=== PATIENT | female | born 1945 | race Caucasian/White ===

== ENCOUNTER → 2022-12-25 08:07 | Outpatient (CLI) | payer MEDICARE, SELFPAY ==
--- NOTE | ~2022-12-25 | CT_ITS ---
EXAMINATION: CTA neck DATE: 12/25/2022 09:20 INDICATION: Right carotid bruit. TECHNIQUE: Computed tomographic angiography (CTA) of the neck was performed with 100 mL Omnipaque-350 intravenous contrast. Automated exposure control and iterative reconstruction technique were employe d. The dose-length product was 454.16 mGy-cm. Maximum intensity projection 3D-reconstructions were cr eated by the technologist on a separate workstation. COMPARISON: None. FINDINGS: There are no pathologically enlarged lymph nodes. The vertebral arteries are codominant. Th ere is moderate stenosis of distal right common carotid artery. There is moderate stenosis of distal left common carotid artery. There is plaque in the proximal internal carotid arteries. There is 45% s tenosis of the proximal right internal carotid artery relative to normal distal artery lumen diameter (NASCET criteria). There is 64% stenosis of the proximal left internal carotid artery relative to no rmal distal artery lumen diameter. There is severe cervical spondylosis. IMPRESSION: 1. 45% stenosis of the proximal right internal carotid artery relative to normal distal artery lumen diameter (NASCET criteria). 2. 64% stenosis of the proximal left internal carotid artery relative to normal distal artery lumen d iameter. 3. Moderate stenosis of the distal common carotid arteries. Reviewed, dictated and finalized at location A. IMPRESSION: 1. 45% stenosis of the proximal right internal carotid artery relative to freeman l distal artery lumen diameter (NASCET criteria). 2. 64% stenosis of the proximal left internal carotid artery relative to normal distal artery lumen diameter. 3. Moderate stenosis of the distal common carotid arteries.
== END ==
PROVIDERS: PCP Family Medicine; Visit Provider Internal Medicine Cardiovascular Disease
DX: R09.89 Other specified symptoms and signs involving the circulatory and respiratory systems (principal); I25.5 Ischemic cardiomyopathy; I35.1 Nonrheumatic aortic (valve) insufficiency; E78.5 Hyperlipidemia, unspecified; I25.810 Atherosclerosis of coronary artery bypass graft(s) without angina pectoris; R00.1 Bradycardia, unspecified; I25.2 Old myocardial infarction; Z01.810 Encounter for preprocedural cardiovascular examination; I65.23 Occlusion and stenosis of bilateral carotid arteries
CPT/HCPCS: 70498; Q9967

== ENCOUNTER 2023-02-12 09:18 | Outpatient (CLI) | payer MEDICARE, SELFPAY ==
[2023-02-12 13:08] LABS: Alanine Aminotransferase 15 U/L (6-35); Albumin Level 4.1 g/dL (3.5-5.1); Alkaline Phosphatase 148 U/L (38-126); Anion Gap 7 mmol/L (8-16); Aspartate Amino Transferase 33 U/L (14-36); Bilirubin,Total 0.9 mg/dL (0.2-1.3); Blood Urea Nitrogen 26 mg/dL (7-17); Calcium 9.3 mg/dL (8.4-10.2); Carbon Dioxide 31 mmol/L (22-30); Chloride 102 mmol/L (98-107); Cholesterol 152 mg/dL (0-200); Estimated Glomerular Filt Rate 48; Glucose 118 mg/dL (65-110); HDL Direct 34 mg/dL; Potassium 4.2 mmol/L (3.4-5.0); Sodium 140 mmol/L (137-145); Triglycerides 106 mg/dL (<150)
[2023-02-12 13:28] LABS: LDL Cholesterol Direct 89 mg/dL
== END 2023-02-12 09:19 | disposition home or self-care (01) ==
LOC: ANHGOSHLAB 09:19
PROVIDERS: PCP Family Medicine; Visit Provider Family Medicine
DX: E78.5 Hyperlipidemia, unspecified (principal); I10 Essential (primary) hypertension
CPT/HCPCS: 36415; 80053; 80061

== ENCOUNTER 2023-04-17 09:48 | Outpatient (CLI) | payer MEDICARE, SELFPAY | END 2023-04-17 09:49 | disposition home or self-care (01) | LOC: ANHAUDIO 09:49 | PROVIDERS: PCP Family Medicine; Visit Provider Family Medicine | DX: H90.3 Sensorineural hearing loss, bilateral (principal) | CPT/HCPCS: 92567 ==

== ENCOUNTER 2024-04-12 13:33 | Outpatient (CLI) | payer MEDICARE, SELFPAY ==
[2024-04-12 19:10] LABS: Alanine Aminotransferase 13 U/L (6-35); Albumin Level 4.2 g/dL (3.5-5.1); Alkaline Phosphatase 148 U/L (38-126); Anion Gap 6 mmol/L (4-12); Aspartate Amino Transferase 33 U/L (14-36); Bilirubin,Total 1.1 mg/dL (0.2-1.3); Blood Urea Nitrogen 24 mg/dL (7-17); Calcium 9.4 mg/dL (8.4-10.2); Carbon Dioxide 31 mmol/L (22-30); Chloride 104 mmol/L (98-107); Cholesterol 167 mg/dL (0-200); Estimated Glomerular Filt Rate 43; Glucose 122 mg/dL (65-110); HDL Direct 37 mg/dL; Sodium 141 mmol/L (137-145); Triglycerides 132 mg/dL (<150)
[2024-04-12 19:21] LABS: LDL Cholesterol Direct 110 mg/dL
== END 2024-04-12 13:34 | disposition home or self-care (01) ==
LOC: ANHGOSHLAB 13:35
PROVIDERS: PCP Family Medicine; Visit Provider Family Medicine
DX: I25.2 Old myocardial infarction (principal); Z13.228 Encounter for screening for other metabolic disorders; Z13.220 Encounter for screening for lipoid disorders
CPT/HCPCS: 36415; 80053; 80061

== ENCOUNTER 2024-05-12 10:33 | Outpatient (CLI) | payer MEDICARE, SELFPAY ==
[2024-05-12 19:32] LABS: Alanine Aminotransferase 13 U/L (6-35); Albumin Level 4.2 g/dL (3.5-5.1); Alkaline Phosphatase 128 U/L (38-126); Anion Gap 9 mmol/L (4-12); Aspartate Amino Transferase 39 U/L (14-36); Bilirubin,Total 1.2 mg/dL (0.2-1.3); Blood Urea Nitrogen 16 mg/dL (7-17); Calcium 9.3 mg/dL (8.4-10.2); Carbon Dioxide 30 mmol/L (22-30); Chloride 98 mmol/L (98-107); Estimated Glomerular Filt Rate 48; Glucose 112 mg/dL (65-110); Potassium 4.2 mmol/L (3.4-5.0); Sodium 137 mmol/L (137-145)
[2024-05-16 15:14] LABS: GGT 20 U/L
== END 2024-05-12 10:34 | disposition home or self-care (01) ==
LOC: ANHGOSHLAB 10:34
PROVIDERS: PCP Family Medicine; Visit Provider Family Medicine
DX: R74.8 Abnormal levels of other serum enzymes (principal); Z13.228 Encounter for screening for other metabolic disorders
CPT/HCPCS: 36415; 80053; 82977

== ENCOUNTER 2024-12-19 11:09 | Outpatient (CLI) | payer MEDICARE, SELFPAY ==
--- OUTSIDE RECORDS SUMMARY | 2024-12-19 13:24 | XMS_ITS | Clinical Summary ---
Author Organization [facility] Address [address] [place] [id number] Care Team Providers Care Hide Inspector Name Role Phone Unavailable Primary Care Provider Unavailabl e Social History Tobacco Use Types Packs/Day Years Used Date Smoking Tobacco: Never Assessed Comments Unknown Sex and Gender Information Value Date Recorded Sex Assigned at Not on file Legal Sex Female 8:33 PM CDT Gender Identity Not on file Sexual Orientation Not on file Plan of Treatment Health Maintenance Due Date Last Done Comments Hepatitis C 1963 DTaP, Tdap and Td Vaccines ( 1 - Tdap) 1964 Zoster Vaccines (1 of 2) 1995 Dexa Scan (General) 2010 Pneumococcal Vaccine: 65+ Ye ars (1 of 1 - PCV) 2010 RSV Immunization or 60+ Years (1 - 1-dose 75+ series) 2020 COVID-19 Vaccine ( - 2023-2 5 season) 2024 Influenza Adult (#1) 2024 Meningococcal B Vaccine Aged Out No l onger eligible based on patient's age to complete this topic Meningococcal Vaccine Aged Out No teddy cheo eligible based on patient's age to complete this topic RSV Immunizations Under 20 Months Aged Out No longer eligible based on patient's age to complete this topic
--- OUTSIDE RECORDS SUMMARY | 2024-12-19 13:24 | XMS_ITS | CONTINUITY OF CARE DOCUMENT ---
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 Rejiremedios Gray Hyperlipidemia active ? Reji Sweeney MD Hypertension active ? Rejisalinas Sweeney MD Myocardial Infarction active ? Siva porter MD (History of) Bradycardia - sinus active Siva Tian MD AAA active Siva Tian MD Aortic regurgitation active Siva gar MD Ischemic cardiomyopathy - EF 45% 12/2015 active Suellen Preciado NP Carotid bruit right active Siva Tian MD Preop cardiovasc. examination active Sameer Tian MD Cardiology examination active Siva sainz MD ENCOUNTERS Date Type Provider Location Encounter Diag nosis 9 - 5 In-person encounter Office Visit Siva Tian MD [facility] Cardiology examination 7 - 8 In-person encounter Office Visit Siva Tian MD [facility] 5 - 0 In-person encounter Office Visit Siva Tian MD [facility] 9 - 4 In-person encounter Office Visit Siva Tian MD [facility] 3 - 7 In-person encounter Office Visit Siva Tian MD [facility] 4 - 7 In-person encounter Office Visit Siva Tian MD [facility] 1 - 1 In-person encounter Office Visit Tyra Burleson MD [facility] 0 - 8 In-person encounter Office Visit Siva Tian MD [facility] Preop cardiovasc. examination 8 - 8 In-person encounter Office Visit Siva Tian MD [facility] 1 - 1 In-person encounter Office Visit Siva Tian MD [facility] Carotid bruit right 7 - 0 In-person encounter Office Visit Siva Tian MD [facility] 6 - 7 In-person encounter Office Visit Siva Tian MD [facility] 9 - 5 In-person encounter Office Visit Siva Tian MD [facility] Ischemic cardiomyopathy - EF 45% 12/2015 9 - 1 In-person encounter Office Visit Siva Tian MD [facility] Bradycardia - sinusAAAAortic regurgitation 8 - 3 In-person encounter Office Visit Siva Tian MD [facility] Myocardial Infarction 6 - 6 In-person encounter Office Visit Reji Sweeney MD [facility] Coronary Heart DiseaseHyperlipidemiaHypertension VITAL SIGNS Date Observation Value Provider Body Mass Index (Ratio) 29.68 kg/m2 Sean as Rajat blood pressure, diastolic 70 mm[Hg] Li nkLogic blood pressure, systolic 110 mm[Hg] Angelica kLogic blood pressure, diastolic 70 mm[Hg] Bree adenikeLogtamiko blood pressure, systolic 110 mm[Hg] Angelica Jaidenog blood pressure, cuff size regular Moises Poole blood pressure, diastolic 70 mm[Hg] Moises Poole blood pressure, systolic 110 mm[Hg] Luciano Poole pulse rate 70 /min Charu Poole oxygen saturation, oximetry 96 % Charu Poole weight E&M 195.2 [lb_av] Charu Poole respiratory rate E&M 12 /min Charu Poole height E&M 68 [in_i] Amilcar prieto Body Mass Index (Ratio) 27.73 kg/m2 Cristina Tian MD blood pressure, diastolic 83 mm[Hg] Bree jeongLogtamiko blood pressure, systolic 133 mm[Hg] Angelica Hwangtmaiko blood pressure, diastolic 83 mm[Hg] St negrito Esparza blood pressure, systolic 133 mm[Hg] Albert Esparza oxygen saturation, oximetry 97 % Moriah Esparza pulse rate 76 /min Moriah Esparza respiratory rate E&M 18 /min Moriah cardenas weight E&M 182.4 [lb_av] Moriah Esparza height E&M 68 [in_i] Moriah Esparza Body Mass Index (Ratio) 27.76 kg/m2 Cristina Tian MD blood pressure, diastolic -1 mm[Hg] Bree jeongLogtamiko blood pressure, systolic 136 mm[Hg] Angelica Hwangogtamiko blood pressure, diastolic 80 mm[Hg] lexus Gonzalez blood pressure, systolic 136 mm[Hg] [facility] jono Gonzalez oxygen saturation, oximetry 96 % Suellen Gonzalez pulse rate 75 /min Suellen Gonzalez respiratory rate E&M 18 /min Suellen Gonzalez blood pressure, cuff size regular Elver Gonzalez weight E&M 182.6 [lb_av] Suellen Gonzalez height E&M 68 [in_i] Suellen Gonzalez Body Mass Index (Ratio) 29.34 kg/m2 Shaf iq Allaham blood pressure, diastolic 77 mm[Hg] Sa ra Anne blood pressure, systolic 124 mm[Hg] Julius a Anne respiratory rate E&M 16 /min Richa Si ms oxygen saturation, oximetry 96 % Richa Anne pulse rate 75 /min Richa Anne weight E&M 193 [lb_av] Richa Anne blood pressure, cuff size regular Sa ra Anne height E&M 68 [in_i] Richa Anne Body Mass Index (Ratio) 30.41 kg/m2 Cristina Tian MD blood pressure, diastolic 65 mm[Hg] Bree nkLogtamiko blood pressure, systolic 124 mm[Hg] Angelica Hwangogtamiko blood pressure, diastolic 65 mm[Hg] Lisa Willis blood pressure, systolic 124 mm[Hg] Jr Willis blood pressure, cuff size regular Lisa Willis oxygen saturation, oximetry 96 % Latrice Willis respiratory rate E&M 16 /min Kelli Willis pulse rate 59 /min Latrice Perfecto mercer weight E&M 200 [lb_av] Jrdiaz mercer height E&M 68 [in_i] Jrdiaz mercer Body Mass Index (Ratio) 30.25 kg/m2 Cristina Tian MD blood pressure, diastolic 80 mm[Hg] Li nkLogic blood pressure, systolic 130 mm[Hg] Angelica kLogic blood pressure, cuff size regular Cy joanna White blood pressure, diastolic 80 mm[Hg] Cy joanna White blood pressure, systolic 130 mm[Hg] Avelina White oxygen saturation, oximetry 94 % Aislinn White pulse rate 59 /min Aislinn carrizales respiratory rate E&M 16 /min Aislinn White weight E&M 199 [lb_av] Aislinn carrizales height E&M 68 [in_i] Aislinn Brooke l Body Mass Index (Ratio) 29.49 kg/m2 Kevin Burleson MD blood pressure, cuff size large Ke rri Gruenenfeldsiobhan blood pressure, diastolic 72 mm[Hg] Ke rri Adamuenenfelder blood pressure, systolic 144 mm[Hg] Mitch ri Aidaer oxygen saturation, oximetry 97 % Sharita Alex respiratory rate E&M 18 /min Sharita G chandlerelder pulse rate 59 /min Sharita Orin er weight E&M 194 [lb_av] Sharita Jamilahnenfe lder height E&M 68 [in_i] Sharita Gruenenfe er Body Mass Index (Ratio) 29.95 kg/m2 Cristina Tian MD blood pressure, diastolic 82 mm[Hg] Er ica Osman blood pressure, systolic 150 mm[Hg] Cindy vianca Brewer oxygen saturation, oximetry 98 % Joellenflip Brewer pulse rate 53 /min Joellen Madison Noonan weight E&M 197 [lb_av] Joellen Madison Noonan height E&M 68 [in_i] Joellen Mendeze Body Mass Index (Ratio) 28.89 kg/m2 Cristina Tian MD blood pressure, diastolic 60 mm[Hg] Ki aysha Escobar blood pressure, systolic 140 mm[Hg] Geovanni calloway Escobar oxygen saturation, oximetry 98 % [facility] E&M 16 /min [facility] pulse rate 64 /min Lana Escobar weight E&M 190 [lb_av] [facility] height E&M 68 [in_i] [facility] Body Mass Index (Ratio) 28.58 kg/m2 Andriy [facility] blood pressure, diastolic 72 mm[Hg] Scar Minhien Howard blood pressure, systolic 157 mm[Hg] Ya Sanchez Howard oxygen saturation, oximetry 92 % Jefferson Howard respiratory rate E&M 18 /min Fabienne Howard pulse rate 54 /min Jefferson Montez on weight E&M 188 [lb_av] Jefferson Montez on height E&M 68 [in_i] Jefferson Montez on Body Mass Index (Ratio) 29.37 kg/m2 Andriy [facility] blood pressure, diastolic 78 mm[Hg] Scar Minhien Howard blood pressure, systolic 175 mm[Hg] Ya Navarrotatumelizabeth Howard oxygen saturation, oximetry 96 % Jefferson Howard respiratory rate E&M 18 /min Fabienne Ramachandranenson pulse rate 56 /min Jefferson Montez nson weight E&M 193.2 [lb_av] Jefferson Ramachandran enson height E&M 68 [in_i] Jefferson Montez nson Body Mass Index (Ratio) 29.19 kg/m2 Cristina Tian MD blood pressure, diastolic 82 mm[Hg] Da paramjit Jessica blood pressure, systolic 134 mm[Hg] Dac ia Jessica oxygen saturation, oximetry 98 % Delfina Jessica respiratory rate E&M 16 /min Delfina V oss pulse rate 64 /min Delfina Jessica weight E&M 192 [lb_av] Delfina Jessica height E&M 68 [in_i] Delfina Jessica Body Mass Index (Ratio) 29.95 kg/m2 Cristina Tian MD blood pressure, diastolic 82 mm[Hg] Scar Howard blood pressure, systolic 152 mm[Hg] Ya Howard oxygen saturation, oximetry 95 % Jefferson Howard respiratory rate E&M 18 /min Fabienne Howard pulse rate 52 /min Jefferson gordillo weight E&M 197 [lb_av] Jefferson Tc nson height E&M 68 [in_i] Jefferson Tc lloyd blood pressure, diastolic 77 mm[Hg] Me beckwith Caal blood pressure, systolic 153 mm[Hg] Patricia orozco Caal pulse rate 58 /min Shasta Caal oxygen saturation, oximetry 98 % Shasta Caal respiratory rate E&M 15 /min Shasta Caal Body Mass Index (Ratio) 30.25 kg/m2 Jessa lucio Caal weight E&M 199 [lb_av] Shasta Caal blood pressure, diastolic 80 mm[Hg] Scar Howard blood pressure, systolic 176 mm[Hg] Ya Howard pulse rate 59 /min Jefferson goridllo oxygen saturation, oximetry 95 % Jefferson Howard respiratory rate E&M 16 /min Fabienne Howard Body Mass Index (Ratio) 29.43 kg/m2 Freya Howard weight E&M 193.6 [lb_av] Jefferson dumont blood pressure, diastolic, right arm 86 m m[Hg] Barbara Gutierrezby blood pressure, systolic, right arm 130 m m[Hg] Barbara Gutierrezby blood pressure, diastolic 82 mm[Hg] Hugo isty [place] blood pressure, systolic 140 mm[Hg] Malini bernal [place] pulse rate 79 /min Barbara [place] oxygen saturation, oximetry 97 % Barbara [place] respiratory rate E&M 16 /[facility] Body Mass Index (Ratio) 29.01 kg/m2 Earl banegas [place] weight E&M 190.8 [lb_av] Barbara [place] height E&M 68 [in_i] [facility] ALL[facility] No Known Drug Allergies HISTORY OF MEDICATION USE Medication Status Instructions Dates Provider Indications Com ments carvedilol 6.25 mg tablet active TAKE 1 TABLET BY MOUTH TWICE DAILY 12/27 [facility] atorvastatin 20 mg tablet active TAKE 1 TABLET BY MOUTH EVERY DAY 12/27 [facility] amlodipine 10 mg tablet active TAKE 1 TABLET BY MOUTH EVERY DAY 11/30 [facility] atorvastatin 20 mg tablet completed Take 1 tablet by mouth once a day 11/19 - 12/27 Amilcar amlodipine 10 mg tablet completed Take 1 tablet by mouth once a day 11/19 - 11/30 Meghna Hernández carvedilol 6.25 mg tablet completed Take 1 tablet by mouth twice a day 11/19 - 12/27 Amilcar hydrochlorothiazide 25 mg tablet completed TAKE ONE TABLET BY MOUTH EVERY DAY 10/26 - 02/21 Monserrat Montalvo RN amlodipine 10 mg tablet completed TAKE ONE TABLET BY MOUTH EVERY DAY 10/26 - 11/19 Sharita Johnson enalapril maleate 10 mg tablet completed TAKE ONE TABLET BY MOUTH TWICE DAILY 11/26 - 11/26 Siva Tian MD atorvastatin 20 mg tablet completed TAKE ONE TABLET BY MOUTH EVERY DAY 11/26 - 11/19 Sharita Johnson carvedilol 6.25 mg tablet completed TAKE ONE TABLET BY MOUTH TWICE DAILY 10/23 - 11/19 Sharita Johnson atorvastatin 40 mg tablet completed Take 1 tablet by mouth once a day 11/21 - 11/26 Otis Obrien amlodipine 10 mg tablet completed Take 1 tablet by mouth once a day 12/28 - 10/26 Aislinn White omeprazole 40 mg capsule,delayed release(DR/EC) active capsule by mouth once a day Jefferson [facility] aspirin 81 mg tablet,delayed release (DR/EC) active 1 tablet by mouth once a day Jefferson Howard NORVASC 5 MG ORAL TABLET completed One tablet once daily 02/12 - Jefferson Howard YOSPRALA 81-40 MG ORAL TABLET DELAYED RELEASE completed One tablet, daily. - Jefferson Howard Replaces aspirin hydrochlorothiazide 25 mg tablet completed Take 1 tablet by mouth once a day 10/30 - Aislinn White enalapril maleate 10 mg tablet completed Take 1 tablet by mouth once a day 10/30 - 11/26 Aislinn Whtie carvedilol 6.25 mg tablet completed Take 1 tablet by mouth twice a day 10/30 - 10/23 Glen Ledezma CLOPIDOGREL BISULFATE 75 MG ORAL TABLET completed once daily - Siva Tian MD atorvastatin 20 mg tablet completed Take 1 tablet by mouth once a day 10/30 - Aislinn CABRERA ASPIRIN 81 MG ORAL TABLET DELAYED RELEASE completed once daily - Siva Tian MD SOCIAL HISTORY Date Observation Value Provider Exercise counseling yes Mroiah Andres soler smoking status Never smoker Moriah Isaias number of grandchildren Siva Tian MD social history E&M Patient has n ever smoked. A lcohol Use - no Smoking History: Remedios sevilla has never smoked. Siva Tian MD social history reviewed E&M revi ewed - no changes required Siva Tian MD smoking status Never smoker Suellen Gonzalez social history reviewed E&M revi ewed - no changes required Siva Tian MD social history reviewed E&M revi ewed - no changes required Siva Tian MD Exercise counseling yes Mnaju Willis smoking status Never smoker Aislinn lopez number of grandchildren Tyra Earl smoking status Never smoker Carlos Tenorio Rajat alcohol use no Carlos Tenorio [place] social history E&M Patient has n ever smoked. A lcohol Use - no Smoking History: Remedios sevilla has never smoked. Carlos Tenorio Rajat social history reviewed E&M revi ewed - no changes required Carlos Tenorio Rajat social history E&M Patient has n ever smoked. A lcohol Use - no Smoking History: Remedios sevilla has never smoked. Siva Tian MD smoking status Never smoker Joellen Crook social history reviewed E&M revi ewed - no changes required Joellen Brewer social history E&M Patient has n ever smoked. A lcohol Use - no Smoking History: Remedios sevilla has never smoked. Siva Tian MD social history reviewed E&M revi ewed - no changes required Siva Tian MD alcohol use no Lana Escobar smoking status Never smoker Lana islas social history reviewed E&M revi ewed - no changes required Siva Tian MD social history E&M Patient has n ever smoked. A lcohol Use - no Smoking History: Remedios sevilla has never smoked. Siva Tian MD alcohol use no Jefferson Montez nson smoking status Never smoker Jefferson Niño social history E&M Patient has n ever smoked. A lcohol Use - no Smoking History: Remedios sevilla has never smoked. Siva Tian MD social history reviewed E&M revi ewed - no changes required Siva Tian MD alcohol use no Jefferson Montez nslloyd smoking status Never smoker Jefferson Niño social history reviewed E&M revi ewed - no changes required Siva Tian MD social history E&M Patient has n ever smoked. A lcohol Use - no Smoking History: Remedios sevilla has never smoked. Siva Tian MD alcohol use no Delfina Jessica smoking status Never smoker Delfina Jessica smoking status Never smoker Suellen carrizales NP social history E&M Patient has n ever smoked. A lcohol Use - no Smoking History: Remedios sevilla has never smoked. Suellen Preciado NP social history reviewed E&M revi ewed - no changes required Suellen Preciado NP alcohol use no Jefferson Montez nson social history E&M Patient has n ever smoked. A lcohol Use - no Smoking History: Remedios sevilla has never smoked. Siva Tian MD alcohol use no Shasta Caal smoking status Never smoker Shasta stanford number of grandchildren Siva Tian MD social history reviewed E&M revi ewed - no changes required Siva Tian MD alcohol use no Jefferson gordillo smoking status Never smoker Jefferson Niño social history reviewed E&M david calle - no changes required Monserrat Montalvo RN social history E&M Patient has n ever smoked. A lcohol Use - no Smoking History: P di has never smoked. Reji Sweeney MD smoking status Never smoker Reji Islas D FUNCTIONAL STATUS Date Observation Value Provider HRA, CV Assess/Plan, Angina (inactive) Management Plan continue current therapy Siva Tian MD HRA, CV Assess/Plan, Angina (inactive) Management Plan continue current therapy Siva Tian MD HRA, CV Assess/Plan, Angina (inactive) Management Plan continue current therapy Siva Tian MD HRA, CV Assess/Plan, Angina (inactive) Management Plan continue current therapy Siva Tian MD HRA, CV Assess/Plan, Angina (inactive) Management Plan continue current therapy Siva Tian MD HRA, CV Assess/Plan, Angina (inactive) Management Plan continue current therapy Siva Tian MD HRA, CV Assess/Plan, Angina (inactive) Management Plan continue current therapy Andriy Plurad HRA, CV Assess/Plan, Angina (inactive) Management Plan continue current therapy Siva Tian MD HRA, CV Assess/Plan, Angina (inactive) Management Plan continue current therapy Siav Tian MD HRA, CV Assess/Plan, Angina (inactive) Management Plan continue current therapy Siva Tian MD HRA, CV Assess/Plan, Angina (inactive) Management Plan continue current therapy, antianginal therapy Siva Tian MD FAMILY HISTORY Family Member Condition Mother Negative FH of Diabe mazin Mellitus Father Negative FH of Diabe mazin Mellitus Father Negative FH of Coron zuleyma Artery Disease Mother Negative FH of Coron zuleyma Artery Disease INSURANCE PROVIDERS Payer name Policy type / Coverage type Oblong red libertarian ID [facility] Other [facility] Other [facility] Other [employer] MED[employer] [address] (HMO POS) Medicare [id number] ADVANCE DIRECTIVES Name Date DISCUSSED - NO DECISION MADE TREATMENT PLAN Date Name Performer [id number],Coby, I MPRESSION: 1 . 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 This is treated with drug eluting stent 2.75 x 16 mm Promus no c omplications. 2 . 50% to 70% lesion of the LAD, which should be evaluated later on w ith the stress test 3 . Ischemic cardiomyopathy with EF of 40%. I would expect this to a t least partially improve after revascularization. 4 . Elevated left ventricular end-diastolic pressure of LV 5 . No mitral regurgitation. T chris you for participation Siva Tian MD [id number],Coby N eeds echo done this year February 21, 2022 E F improved Echo: 1 . Normal LV systolic function with EF 65%. 2 . Stage 1 diastolic dysfunction. 3 . Mild LA chamber enlargement. 4 . Mild aortic regurgitation. 5 . Trace mitral, tricuspid and pulmonic regurgitation. 6 . Normal estimated PA systolic pressure. November 26, 2022 N ew echo from 05/2022 C ONCLUSIONS: 1 . There is hypokinesis in the mid inferoseptal wall. Normal left ventricular systolic function. Normal left ventricular size. Mild c oncentric left ventricular hypertrophy. There is E to A wave reversal consistent with impaired LV relaxation. E/E': 8.3 Left v entricular ejection fraction is measured at 55 %. 2 . Normal right ventricular size. Normal right ventricular systolic function. 3 . Aortic valve leaflets appear structurally normal. Velocities, as well as gradients across the aortic valve are normal. Mild to m oderate aortic valve regurgitation. (Does not seem to have worsened compared to LARRY from before.). E lectronically Signed By: Perlita Tian MD, FACC 2 15:52:28 CDT C C: Siva Tian MD, FACC Siva Tian MD [id number],C, Heart rate today is about 76 Siva Tian MD [id number],C, C ONCLUSIONS: 1 . There is hypokinesis in the mid inferoseptal wall. Normal left ventricular systolic function. Normal left ventricular size. Mild c oncentric left ventricular hypertrophy. There is E to A wave reversal consistent with impaired LV relaxation. E/E': 8.3 Left v entricular ejection fraction is measured at 55 %. 2 . Normal right ventricular size. Normal right ventricular systolic function. 3 . Aortic valve leaflets appear structurally normal. Velocities, as well as gradients across the aortic valve are normal. Mild to m oderate aortic valve regurgitation. (Does not seem to have worsened compared to LARRY from before.). E lectronically Signed By: Perlita Tian MD, [facility] 2 022-08-19 15:52:28 CDT C C: Siva Tian MD, [facility] Siva Tian MD [id number],C, O ctober 2018 C urrently off plavix. Remains on aspirin alone. No new sx. Remains ASA/Plavix. Can come off Plavix. Has been greater than one year on DAPT for ANTHONY. Will switch to Yosprala 81/40mg and have her stop regular aspirin. May 30, 2022 P rior stent in RCA November 26, 2022 N o new CP no new angina February 25, 2023 N o new CP. Siva Tian MD [id number],C, C ONCLUSIONS: 1 . 50 - 69% stenosis of the ICA bilaterally. 2 . Vertebral flow is antegrade bilaterally. 3 . ICA/CCA ratios have worsened compared to prior studies from 01/02/16. Needs CTA progression of dz noted S he had CTA done on 12/25/22 I MPRESSION: 1 . 45% stenosis of the proximal right internal carotid artery relative to normal distal artery lumen diameter (NASCET c riteria). 2 . 64% stenosis of the proximal left internal carotid artery relative to normal distal artery lumen diameter. 3 . Moderate stenosis of the distal common carotid arteries. Siva Tian MD [id number],C, C ONCLUSIONS: 1 . 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 2 . Left iliac artery aneurysm. (Although the dimensions that define the aneurysm are dependent on the sex of the patient and t he portion of the artery involved, a common iliac artery (PARAMJIT) with a diameter ? 1.7 cm in males or ? 1.5 cm in females i s considered ectatic. A diameter >2.5 cm is considered aneurysmal ). 3 . No significant change in size compared to study of 2016 renal ultrasound. Siva Tian MD [id number],C,C ONCLUSIONS: 1 . There is hypokinesis in the mid inferoseptal wall. Normal left ventricular systolic function. Normal left ventricular size. Mild c oncentric left ventricular hypertrophy. There is E to A wave reversal consistent with impaired LV relaxation. E/E': 8.3 Left v entricular ejection fraction is measured at 55 %. 2 . Normal right ventricular size. Normal right ventricular systolic function. 3 . Aortic valve leaflets appear structurally normal. Velocities, as well as gradients across the aortic valve are normal. Mild to m oderate aortic valve regurgitation. (Does not seem to have worsened compared to LARRY from before.). E lectronically Signed By: Perlita Tian MD, FACC 2 022-08-19 15:52:28 CDT C C: Siva Tian MD, FACC Siva Tian MD [id number],C, N eeds echo done this year February 21, 2022 E F improved Echo: 1 . Normal LV systolic function with EF 65%. 2 . Stage 1 diastolic dysfunction. 3 . Mild LA chamber enlargement. 4 . Mild aortic regurgitation. 5 . Trace mitral, tricuspid and pulmonic regurgitation. 6 . Normal estimated PA systolic pressure. November 26, 2022 N ew echo from 05/2022 C ONCLUSIONS: 1 . There is hypokinesis in the mid inferoseptal wall. Normal left ventricular systolic function. Normal left ventricular size. Mild c oncentric left ventricular hypertrophy. There is E to A wave reversal consistent with impaired LV relaxation. E/E': 8.3 Left v entricular ejection fraction is measured at 55 %. 2 . Normal right ventricular size. Normal right ventricular systolic function. 3 . Aortic valve leaflets appear structurally normal. Velocities, as well as gradients across the aortic valve are normal. Mild to m oderate aortic valve regurgitation. (Does not seem to have worsened compared to LARRY from before.). E lectronically Signed By: Perlita Tian MD, [facility] 2 15:52:28 CDT C C: Siva Tian MD, [facility] Siva Tian MD [id number],C, O ctober 2018 C urrently off plavix. Remains on aspirin alone. No new sx. Remains ASA/Plavix. Can come off Plavix. Has been greater than one year on DAPT for ANTHONY. Will switch to Yosprala 81/40mg and have her stop regular aspirin. May 30, 2022 P rior stent in RCA November 26, 2022 N o new CP no new angina Siva Tian MD [id number],C, B P today: 136/80 P rior BP: 124/77 (05/30/2022) Her updated medication list for this problem includes: Amlodipine 10 Mg Tablet (Amlodipine) ..... Take 1 tablet by mouth once a day Carvedilol 6.25 Mg Tablet (Carvedilol) ..... Take 1 tablet by mouth twice a day Enalapril Maleate 10 Mg Tablet (Enalapril maleate) ..... Take one tablet by mouth twice daily Aspirin 81 Mg Tablet,delayed Release (dr/ec) (Aspirin) ..... 1 tablet by mouth once a day Siva Tian MD [id number],C,C ONCLUSIONS: 1 . 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 2 . Left iliac artery aneurysm. (Although the dimensions that define the aneurysm are dependent on the sex of the patient and t he portion of the artery involved, a common iliac artery (PARAMJIT) with a diameter ? 1.7 cm in males or ? 1.5 cm in females i s considered ectatic. A diameter >2.5 cm is considered aneurysmal ). 3 . No significant change in size compared to study of 2016 renal ultrasound. Siva Tian MD [id number],S,C ONCLUSIONS: 1 . 50 - 69% stenosis of the ICA bilaterally. 2 . Vertebral flow is antegrade bilaterally. 3 . ICA/CCA ratios have worsened compared to prior studies from 01/02/16. Needs CTA progression of dz noted Siva Tian MD [id number],C, H er updated medication list for this problem includes: Atorvastatin 20 Mg Tablet (Atorvastatin) ..... Take one tablet by mouth every day Siva Tian MD [id number],C, O ctober 2018 C urrently off plavix. Remains on aspirin alone. No new sx. Remains ASA/Plavix. Can come off Plavix. Has been greater than one year on DAPT for ANTHONY. Will switch to Yosprala 81/40mg and have her stop regular aspirin. May 30, 2022 P rior stent in RCA Siva Tian MD [id number],C, B P today: 124/77 P rior BP: 124/65 (02/21/2022) Her updated medication list for this problem includes: Carvedilol 6.25 Mg Tablet (Carvedilol) ..... Take one tablet by mouth twice daily Amlodipine 10 Mg Tablet (Amlodipine) ..... Take one tablet by mouth every day Enalapril Maleate 10 Mg Tablet (Enalapril maleate) ..... Take one tablet by mouth twice daily Aspirin 81 Mg Tablet,delayed Release (dr/ec) (Aspirin) ..... 1 tablet by mouth once a day Siva Tian MD [id number],C, C onclusions: 1 . Mild plaque with less than 50% stenosis of the internal carotid arteries bilaterally. 2 . Vertebral flow is antegrade bilaterally May 30, 2022 C heck CTA since there is progression of ICC/ACC on US Siva Tian MD [id number],C, Conclusions: 1 . Technically difficult study. Unable to visualize the majority of the proximal and mid abdominal aorta s egments. 2 . 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 July 15, 2021 W ill need to measure and compare with study of 2018May 30, 2022 N o significant worsening of AAA scan Siva Tian MD [id number],C,C onclusions: 1 . Mild plaque with less than 50% stenosis of the internal carotid arteries bilaterally. 2 . Vertebral flow is antegrade bilaterally Siva Tian MD [id number],C,R echeck echo S BE prophalaxsis reviewed LARRY done in January 2019 demonstrated mild-moderate AR. No plan for anything beyond medical management at present since LV function is preserved and heart is not dilated. S UMMARY OF FINDINGS: 1 . Normal LV size and function. 2 . Normal RV size and function. 3 . Xqkl-pd-mkjglgzg aortic regurgitation. 4 . PFO, bidirectional positive bubble study, positive color-flow Doppler. Siva Tian MD [id number],C, I MPRESSION: 1 . 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 This is treated with drug eluting stent 2.75 x 16 mm Promus no c omplications. 2 . 50% to 70% lesion of the LAD, which should be evaluated later on w ith the stress test 3 . Ischemic cardiomyopathy with EF of 40%. I would expect this to a t least partially improve after revascularization. 4 . Elevated left ventricular end-diastolic pressure of LV 5 . No mitral regurgitation. T chris you for participation Siva Tian MD [id number],C,N eeds echo done this year February 21, 2022 E F improved Echo: 1 . Normal LV systolic function with EF 65%. 2 . Stage 1 diastolic dysfunction. 3 . Mild LA chamber enlargement. 4 . Mild aortic regurgitation. 5 . Trace mitral, tricuspid and pulmonic regurgitation. 6 . Normal estimated PA systolic pressure. Siva Tian MD [id number],C,I MPRESSION: 1 . 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 This is treated with drug eluting stent 2.75 x 16 mm Promus no c omplications. 2 . 50% to 70% lesion of the LAD, which should be evaluated later on w ith the stress test 3 . Ischemic cardiomyopathy with EF of 40%. I would expect this to a t least partially improve after revascularization. 4 . Elevated left ventricular end-diastolic pressure of LV 5 . No mitral regurgitation. T chris you for participation Siva Tian MD [id number],C, T he following medications were removed from the medication list: Hydrochlorothiazide 25 Mg Tablet (Hydrochlorothiazide) ..... Take 1 tablet by mouth once a day Her updated medication list for this problem includes: Carvedilol 6.25 Mg Tablet (Carvedilol) ..... Take 1 tablet by mouth twice a day Enalapril Maleate 10 Mg Tablet (Enalapril maleate) ..... Take 1 tablet by mouth once a day Amlodipine 10 Mg Tablet (Amlodipine) ..... Take 1 tablet by mouth once a day Aspirin 81 Mg Tablet,delayed Release (dr/ec) (Aspirin) ..... 1 tablet by mouth once a day BP today: 130/80 P rior BP: 144/72 (08/01/2020) Siva Tian MD [id number],C, Conclusions: 1 . Technically difficult study. Unable to visualize the majority of the proximal and mid abdominal aorta s egments. 2 . 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 July 15, 2021 W ill need to measure and compare with study of 2019 Siva Tian MD [id number],C,S BE prophalaxsis reviewed LARRY done in January 2019 demonstrated mild-moderate AR. No plan for anything beyond medical management at present since LV function is preserved and heart is not dilated. S UMMARY OF FINDINGS: 1 . Normal LV size and function. 2 . Normal RV size and function. 3 . Kcwy-su-ujdxbkts aortic regurgitation. 4 . PFO, bidirectional positive bubble study, positive color-flow Doppler. Siva Tian MD [id number],C, P atient planning on oral surgery. She will need SBE prophylaxis due to aortic regurgitation. She can come off of aspirin for her procedure and she would be an acceptable risk for MACE. Siva Tian MD Cardiology:This visi t has been a part of the consistent, comprehensive, and ongoing management of the chronic medical condition(s) listed above for the patient. CONCLUSIONS: 1 . There is hypokinesis in the mid inferoseptal wall. Normal left ventricular systolic function. Normal left ventricular size. Mild c oncentric left ventricular hypertrophy. There is E to A wave reversal consistent with impaired LV relaxation. E/E': 8.3 Left v entricular ejection fraction is measured at 55 %. 2 . Normal right ventricular size. Normal right ventricular systolic function. 3 . Aortic valve leaflets appear structurally normal. Velocities, as well as gradients across the aortic valve are normal. Mild to m oderate aortic valve regurgitation. (Does not seem to have worsened compared to LARRY from before.). E lectronically Signed By: Perlita Tian MD, [facility] 2 022-08-19 15:52:28 CDT C C: Siva Tian MD, [facility] LARRY 2018 SUMMARY OF FINDINGS: 1 . Normal LV size and function. 2 . Normal RV size and function. 3 . Jvck-pk-zoefsxyr aortic regurgitation. 4 . PFO, bidirectional positive bubble study, positive color-flow Doppler. This visit has been a part of the consistent, comprehensive, and ongoing management of the chronic medical condition(s) listed above for the patient. Simone Hortonty Cardiology: B P today: 110/70 P rior BP: 133/83 (02/25/2023) Her updated medication list for this problem includes: Amlodipine 10 Mg Tablet (Amlodipine) ..... Take 1 tablet by mouth every day Carvedilol 6.25 Mg Tablet (Carvedilol) ..... Take 1 tablet by mouth twice daily Aspirin 81 Mg Tablet,delayed Release (dr/ec) (Aspirin) ..... 1 tablet by mouth once a day T his visit has been a part of the consistent, comprehensive, and ongoing management of the chronic medical condition(s) listed above for the patient. Simone Rajat Cardiology: N eeds echo done this year February 21, 2022 E F improved Echo: 1 . Normal LV systolic function with EF 65%. 2 . Stage 1 diastolic dysfunction. 3 . Mild LA chamber enlargement. 4 . Mild aortic regurgitation. 5 . Trace mitral, tricuspid and pulmonic regurgitation. 6 . Normal estimated PA systolic pressure. November 26, 2022 N ew echo from 05/2022 C ONCLUSIONS: 1 . There is hypokinesis in the mid inferoseptal wall. Normal left ventricular systolic function. Normal left ventricular size. Mild c oncentric left ventricular hypertrophy. There is E to A wave reversal consistent with impaired LV relaxation. E/E': 8.3 Left v entricular ejection fraction is measured at 55 %. 2 . Normal right ventricular size. Normal right ventricular systolic function. 3 . Aortic valve leaflets appear structurally normal. Velocities, as well as gradients across the aortic valve are normal. Mild to m oderate aortic valve regurgitation. (Does not seem to have worsened compared to LARRY from before.). E lectronically Signed By: Perlita Tian MD, FACC 15:52:28 CDT C C: Siva Tian MD, FACC This visit has been a part of the consistent, comprehensive, and ongoing management of the chronic medical condition(s) listed above for the patient. Simone Earl Cardiology:This visi t has been a part of the consistent, comprehensive, and ongoing management of the chronic medical condition(s) listed above for the patient. CONCLUSIONS: 1 . There is hypokinesis in the mid inferoseptal wall. Normal left ventricular systolic function. Normal left ventricular size. Mild c oncentric left ventricular hypertrophy. There is E to A wave reversal consistent with impaired LV relaxation. E/E': 8.3 Left v entricular ejection fraction is measured at 55 %. 2 . Normal right ventricular size. Normal right ventricular systolic function. 3 . Aortic valve leaflets appear structurally normal. Velocities, as well as gradients across the aortic valve are normal. Mild to m oderate aortic valve regurgitation. (Does not seem to have worsened compared to LARRY from before.). E lectronically Signed By: Perlita Tian MD, FACC 15:52:28 CDT C C: Siva Tian MD, FACC LARRY 2019 SUMMARY OF FINDINGS: 1 . Normal LV size and function. 2 . Normal RV size and function. 3 . Gjeo-jy-jntgqsth aortic regurgitation. 4 . PFO, bidirectional positive bubble study, positive color-flow Doppler. Siva Tian MD Cardiology:This visi t has been a part of the consistent, comprehensive, and ongoing management of the chronic medical condition(s) listed above for the patient. CONCLUSIONS: 1 . 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 2 . Left iliac artery aneurysm. (Although the dimensions that define the aneurysm are dependent on the sex of the patient and t he portion of the artery involved, a common iliac artery (PARAMJIT) with a diameter ? 1.7 cm in males or ? 1.5 cm in females i s considered ectatic. A diameter >2.5 cm is considered aneurysmal ). 3 . No significant change in size compared to study of 2016 renal ultrasound. March 30, 2024 N eeds to folloup on the abdomminal aortic ECTASIA Siva Tian MD Cardiology:This visi t has been a part of the consistent, comprehensive, and ongoing management of the chronic medical condition(s) listed above for the patient. CONCLUSIONS: 1 . 50 - 69% stenosis of the ICA bilaterally. 2 . Vertebral flow is antegrade bilaterally. 3 . ICA/CCA ratios have worsened compared to prior studies from 01/02/16. Needs CTA progression of dz noted She had CTA done on 12/25/22 I MPRESSION: 1 . 45% stenosis of the proximal right internal carotid artery relative to normal distal artery lumen diameter (NASCET c riteria). 2 . 64% stenosis of the proximal left internal carotid artery relative to normal distal artery lumen diameter. 3 . Moderate stenosis of the distal common carotid arteries. March 30, 2024 R epwated carotid US for the followup Siva Tian MD Cardiology: C ONCLUSIONS: 1 . There is hypokinesis in the mid inferoseptal wall. Normal left ventricular systolic function. Normal left ventricular size. Mild c oncentric left ventricular hypertrophy. There is E to A wave reversal consistent with impaired LV relaxation. E/E': 8.3 Left v entricular ejection fraction is measured at 55 %. 2 . Normal right ventricular size. Normal right ventricular systolic function. 3 . Aortic valve leaflets appear structurally normal. Velocities, as well as gradients across the aortic valve are normal. Mild to m oderate aortic valve regurgitation. (Does not seem to have worsened compared to LARRY from before.). E lectronically Signed By: Perlita Tian MD, [facility] 15:52:28 CDT C C: Siva Tian MD, [facility] LARRY 2018 SUMMARY OF FINDINGS: 1 . Normal LV size and function. 2 . Normal RV size and function. 3 . Jyse-el-izujzoav aortic regurgitation. 4 . PFO, bidirectional positive bubble study, positive color-flow Doppler. Siva Tian MD Cardiology: B P today: 110/70 P rior BP: 133/83 (02/25/2023) Her updated medication list for this problem includes: Amlodipine 10 Mg Tablet (Amlodipine) ..... Take 1 tablet by mouth every day Carvedilol 6.25 Mg Tablet (Carvedilol) ..... Take 1 tablet by mouth twice daily Aspirin 81 Mg Tablet,delayed Release (dr/ec) (Aspirin) ..... 1 tablet by mouth once a day Siva Tian MD Cardiology: N eeds echo done this year February 21, 2022 E F improved Echo: 1 . Normal LV systolic function with EF 65%. 2 . Stage 1 diastolic dysfunction. 3 . Mild LA chamber enlargement. 4 . Mild aortic regurgitation. 5 . Trace mitral, tricuspid and pulmonic regurgitation. 6 . Normal estimated PA systolic pressure. November 26, 2022 N ew echo from 05/2022 C ONCLUSIONS: 1 . There is hypokinesis in the mid inferoseptal wall. Normal left ventricular systolic function. Normal left ventricular size. Mild c oncentric left ventricular hypertrophy. There is E to A wave reversal consistent with impaired LV relaxation. E/E': 8.3 Left v entricular ejection fraction is measured at 55 %. 2 . Normal right ventricular size. Normal right ventricular systolic function. 3 . Aortic valve leaflets appear structurally normal. Velocities, as well as gradients across the aortic valve are normal. Mild to m oderate aortic valve regurgitation. (Does not seem to have worsened compared to LARRY from before.). E lectronically Signed By: Perlita Tian MD, [facility] 15:52:28 CDT C C: Siva Tian MD, [facility] Siva Tian MD Cardiology: C ONCLUSIONS: 1 . 50 - 69% stenosis of the ICA bilaterally. 2 . Vertebral flow is antegrade bilaterally. 3 . ICA/CCA ratios have worsened compared to prior studies from 01/02/16. Needs CTA progression of dz noted S he had CTA done on 12/25/22 I MPRESSION: 1 . 45% stenosis of the proximal right internal carotid artery relative to normal distal artery lumen diameter (NASCET c riteria). 2 . 64% stenosis of the proximal left internal carotid artery relative to normal distal artery lumen diameter. 3 . Moderate stenosis of the distal common carotid arteries. March 30, 2024 R epwated carotid US for the followup Siva Tian MD Cardiology: C ONCLUSIONS: 1 . 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 2 . Left iliac artery aneurysm. (Although the dimensions that define the aneurysm are dependent on the sex of the patient and t he portion of the artery involved, a common iliac artery (PARAMJIT) with a diameter ? 1.7 cm in males or ? 1.5 cm in females i s considered ectatic. A diameter >2.5 cm is considered aneurysmal ). 3 . No significant change in size compared to study of 2016 renal ultrasound. March 30, 2024 N eeds to folloup on the abdomminal aortic ECTASIA Siva Tian MD Cardiology: I MPRESSION: 1 . 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 This is treated with drug eluting stent 2.75 x 16 mm Promus no c omplications. 2. 50% to 70% lesion of the LAD, which should be evaluated later on w ith the stress test 3 . Ischemic cardiomyopathy with EF of 40%. I would expect this to a t least partially improve after revascularization. 4 . Elevated left ventricular end-diastolic pressure of LV 5 . No mitral regurgitation. T chris you for participation Siva Tian MD Cardiology: N eeds echo done this year February 21, 2022 E F improved Echo: 1 . Normal LV systolic function with EF 65%. 2 . Stage 1 diastolic dysfunction. 3 . Mild LA chamber enlargement. 4 . Mild aortic regurgitation. 5 . Trace mitral, tricuspid and pulmonic regurgitation. 6 . Normal estimated PA systolic pressure. November 26, 2022 N ew echo from 05/2022 C ONCLUSIONS: 1 . There is hypokinesis in the mid inferoseptal wall. Normal left ventricular systolic function. Normal left ventricular size. Mild c oncentric left ventricular hypertrophy. There is E to A wave reversal consistent with impaired LV relaxation. E/E': 8.3 Left v entricular ejection fraction is measured at 55 %. 2 . Normal right ventricular size. Normal right ventricular systolic function. 3 . Aortic valve leaflets appear structurally normal. Velocities, as well as gradients across the aortic valve are normal. Mild to m oderate aortic valve regurgitation. (Does not seem to have worsened compared to LARRY from before.). E lectronically Signed By: Perlita Tian MD, [facility] 15:52:28 CDT C C: Siva Tian MD, [facility] Siva Tian MD Cardiology: Heart rate today is about 76 Siva Tian MD Cardiology: C ONCLUSIONS: 1 . There is hypokinesis in the mid inferoseptal wall. Normal left ventricular systolic function. Normal left ventricular size. Mild c oncentric left ventricular hypertrophy. There is E to A wave reversal consistent with impaired LV relaxation. E/E': 8.3 Left v entricular ejection fraction is measured at 55 %. 2 . Normal right ventricular size. Normal right ventricular systolic function. 3 . Aortic valve leaflets appear structurally normal. Velocities, as well as gradients across the aortic valve are normal. Mild to m oderate aortic valve regurgitation. (Does not seem to have worsened compared to LARRY from before.). E lectronically Signed By: Perlita Tian MD, [facility] 15:52:28 CDT C C: Siva Tian MD, [facility] Siva Tian MD Cardiology: O ctober 2018 C urrently off plavix. Remains on aspirin alone. No new sx. Remains ASA/Plavix. Can come off Plavix. Has been greater than one year on DAPT for ANTHONY. Will switch to Yosprala 81/40mg and have her stop regular aspirin. May 30, 2022 P rior stent in RCA November 26, 2022 N o new CP no new angina February 25, 2023 N o new CP. Siva Tian MD Cardiology: C ONCLUSIONS: 1 . 50 - 69% stenosis of the ICA bilaterally. 2 . Vertebral flow is antegrade bilaterally. 3 . ICA/CCA ratios have worsened compared to prior studies from 01/02/16. Needs CTA progression of dz noted S he had CTA done on 12/25/22 I MPRESSION: 1 . 45% stenosis of the proximal right internal carotid artery relative to normal distal artery lumen diameter (NASCET c riteria). 2 . 64% stenosis of the proximal left internal carotid artery relative to normal distal artery lumen diameter. 3 . Moderate stenosis of the distal common carotid arteries. Siva Tian MD Cardiology: C ONCLUSIONS: 1 . 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 2 . Left iliac artery aneurysm. (Although the dimensions that define the aneurysm are dependent on the sex of the patient and t he portion of the artery involved, a common iliac artery (PARAMJIT) with a diameter ? 1.7 cm in males or ? 1.5 cm in females i s considered ectatic. A diameter >2.5 cm is considered aneurysmal ). 3 . No significant change in size compared to study of 2016 renal ultrasound. Siva Tian MD Cardiology:CONCLUSIO NS: 1 . There is hypokinesis in the mid inferoseptal wall. Normal left ventricular systolic function. Normal left ventricular size. Mild c oncentric left ventricular hypertrophy. There is E to A wave reversal consistent with impaired LV relaxation. E/E': 8.3 Left v entricular ejection fraction is measured at 55 %. 2 . Normal right ventricular size. Normal right ventricular systolic function. 3 . Aortic valve leaflets appear structurally normal. Velocities, as well as gradients across the aortic valve are normal. Mild to m oderate aortic valve regurgitation. (Does not seem to have worsened compared to LARRY from before.). E lectronically Signed By: Perlita Tian MD, FACC 2 022-08-19 15:52:28 CDT C C: [facility] Tian MD, [facility] Siva Tian MD Cardiology: N eeds echo done this year February 21, 2022 E F improved Echo: 1 . Normal LV systolic function with EF 65%. 2 . Stage 1 diastolic dysfunction. 3 . Mild LA chamber enlargement. 4 . Mild aortic regurgitation. 5 . Trace mitral, tricuspid and pulmonic regurgitation. 6 . Normal estimated PA systolic pressure. November 26, 2022 N ew echo from 05/2022 C ONCLUSIONS: 1 . There is hypokinesis in the mid inferoseptal wall. Normal left ventricular systolic function. Normal left ventricular size. Mild c oncentric left ventricular hypertrophy. There is E to A wave reversal consistent with impaired LV relaxation. E/E': 8.3 Left v entricular ejection fraction is measured at 55 %. 2 . Normal right ventricular size. Normal right ventricular systolic function. 3 . Aortic valve leaflets appear structurally normal. Velocities, as well as gradients across the aortic valve are normal. Mild to m oderate aortic valve regurgitation. (Does not seem to have worsened compared to LARRY from before.). E lectronically Signed By: Perlita Tian MD, [facility] 2 15:52:28 CDT C C: Siva Tian MD, [facility] Siva Tian MD Cardiology: O ctober 2018 C urrently off plavix. Remains on aspirin alone. No new sx. Remains ASA/Plavix. Can come off Plavix. Has been greater than one year on DAPT for ANTHONY. Will switch to Yosprala 81/40mg and have her stop regular aspirin. May 30, 2022 P rior stent in RCA November 26, 2022 N o new CP no new angina Siva Tian MD Cardiology: B P today: 136/80 P rior BP: 124/77 (05/30/2022) Her updated medication list for this problem includes: Amlodipine 10 Mg Tablet (Amlodipine) ..... Take 1 tablet by mouth once a day Carvedilol 6.25 Mg Tablet (Carvedilol) ..... Take 1 tablet by mouth twice a day Enalapril Maleate 10 Mg Tablet (Enalapril maleate) ..... Take one tablet by mouth twice daily Aspirin 81 Mg Tablet,delayed Release (dr/ec) (Aspirin) ..... 1 tablet by mouth once a day Siva Tian MD Cardiology:CONCLUSIO NS: 1 . 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 2 . Left iliac artery aneurysm. (Although the dimensions that define the aneurysm are dependent on the sex of the patient and t he portion of the artery involved, a common iliac artery (PARAMJIT) with a diameter ? 1.7 cm in males or ? 1.5 cm in females i s considered ectatic. A diameter >2.5 cm is considered aneurysmal ). 3 . No significant change in size compared to study of 2016 renal ultrasound. Siva Tian MD Cardiology:CONCLUSIO NS: 1 . 50 - 69% stenosis of the ICA bilaterally. 2 . Vertebral flow is antegrade bilaterally. 3 . ICA/CCA ratios have worsened compared to prior studies from 01/02/16. Needs CTA progression of dz noted Siva Tian MD Cardiology: H er updated medication list for this problem includes: Atorvastatin 20 Mg Tablet (Atorvastatin) ..... Take one tablet by mouth every day Siva Tian MD Cardiology: O ctober 2018 C urrently off plavix. Remains on aspirin alone. No new sx. Remains ASA/Plavix. Can come off Plavix. Has been greater than one year on DAPT for ANTHONY. Will switch to Yosprala 81/40mg and have her stop regular aspirin. May 30, 2022 P rior stent in RCA Siva Tian MD Cardiology: B P today: 124/77 P rior BP: 124/65 (02/21/2022) Her updated medication list for this problem includes: Carvedilol 6.25 Mg Tablet (Carvedilol) ..... Take one tablet by mouth twice daily Amlodipine 10 Mg Tablet (Amlodipine) ..... Take one tablet by mouth every day Enalapril Maleate 10 Mg Tablet (Enalapril maleate) ..... Take one tablet by mouth twice daily Aspirin 81 Mg Tablet,delayed Release (dr/ec) (Aspirin) ..... 1 tablet by mouth once a day Siva Tian MD Cardiology: C onclusions: 1 . Mild plaque with less than 50% stenosis of the internal carotid arteries bilaterally. 2 . Vertebral flow is antegrade bilaterally May 30, 2022 C heck CTA since there is progression of ICC/ACC on US Siva Tian MD Cardiology: Conclusions: 1 . Technically difficult study. Unable to visualize the majority of the proximal and mid abdominal aorta s egments. 2 . 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 July 15, 2021 W ill need to measure and compare with study of 2018May 30, 2022 N o significant worsening of AAA scan Siva Tian MD Cardiology:Conclusio ns: 1 . Mild plaque with less than 50% stenosis of the internal carotid arteries bilaterally. 2 . Vertebral flow is antegrade bilaterally Siva Tian MD Cardiology:Recheck e mayra Bhat BE prophalaxsis reviewed LARRY done in January 2019 demonstrated mild-moderate AR. No plan for anything beyond medical management at present since LV function is preserved and heart is not dilated. S UMMARY OF FINDINGS: 1 . Normal LV size and function. 2 . Normal RV size and function. 3 . Xnpp-uf-jfjaqtpe aortic regurgitation. 4 . PFO, bidirectional positive bubble study, positive color-flow Doppler. Siva Tian MD Cardiology: I MPRESSION: 1 . 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 This is treated with drug eluting stent 2.75 x 16 mm Promus no c omplications. 2. 50% to 70% lesion of the LAD, which should be evaluated later on w ith the stress test 3 . Ischemic cardiomyopathy with EF of 40%. I would expect this to a t least partially improve after revascularization. 4 . Elevated left ventricular end-diastolic pressure of LV 5 . No mitral regurgitation. T chris you for participation Siva Tian MD Cardiology:Needs ech o done this year February 21, 2022 E F improved Echo: 1 . Normal LV systolic function with EF 65%. 2 . Stage 1 diastolic dysfunction. 3 . Mild LA chamber enlargement. 4 . Mild aortic regurgitation. 5 . Trace mitral, tricuspid and pulmonic regurgitation. 6 . Normal estimated PA systolic pressure. Siva Tian MD Cardiology follow up :IMPRESSION: 1 . 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 This is treated with drug eluting stent 2.75 x 16 mm Promus no c omplications. 2 . 50% to 70% lesion of the LAD, which should be evaluated later on w ith the stress test 3 . Ischemic cardiomyopathy with EF of 40%. I would expect this to a t least partially improve after revascularization. 4 . Elevated left ventricular end-diastolic pressure of LV 5 . No mitral regurgitation. T chris you for participation Siva Tian MD Cardiology follow up : T bharati following medications were removed from the medication list: Hydrochlorothiazide 25 Mg Tablet (Hydrochlorothiazide) ..... Take 1 tablet by mouth once a day & #13;Her updated medication list for this problem includes: Carvedilol 6.25 Mg Tablet (Carvedilol) ..... Take 1 tablet by mouth twice a day Enalapril Maleate 10 Mg Tablet (Enalapril maleate) ..... Take 1 tablet by mouth once a day Amlodipine 10 Mg Tablet (Amlodipine) ..... Take 1 tablet by mouth once a day Aspirin 81 Mg Tablet,delayed Release (dr/ec) (Aspirin) ..... 1 tablet by mouth once a day BP today: 130/80 P rior BP: 144/72 (08/01/2020) Siva Tian MD Cardiology follow up : Conclusions: 1 . Technically difficult study. Unable to visualize the majority of the proximal and mid abdominal aorta s egments. 2 . 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 July 15, 2021 W ill need to measure and compare with study of 2019 Siva Tian MD Cardiology follow up :SBE richard reviewed LARRY done in January 2019 demonstrated mild-moderate AR. No plan for anything beyond medical management at present since LV function is preserved and heart is not dilated. S UMMARY OF FINDINGS: 1 . Normal LV size and function. 2 . Normal RV size and function. 3 . Xwcg-ck-xxsmqpvj aortic regurgitation. 4 . PFO, bidirectional positive bubble study, positive color-flow Doppler. Siva Tian MD Cardiology follow up : P atient planning on oral surgery. She will need SBE prophylaxis due to aortic regurgitation. She can come off of aspirin for her procedure and she would be an acceptable risk for MACE. Siva Tian MD Cardiology Follow up Carlos Horton bassam Cardiology Follow up : E F improved Echo: 1 . Normal LV systolic function with EF 65%. 2 . Stage 1 diastolic dysfunction. 3 . Mild LA chamber enlargement. 4 . Mild aortic regurgitation. 5 . Trace mitral, tricuspid and pulmonic regurgitation. 6 . Normal estimated PA systolic pressure. Carlos Earl Cardiology Follow up : LARRY done in January 2019 demonstrated mild-moderate AR. No plan for anything beyond medical management at present since LV function is preserved and heart is not dilated. S UMMARY OF FINDINGS: 1 . Normal LV size and function. 2 . Normal RV size and function. 3 . Svnl-ld-dzsebhta aortic regurgitation. 4 . PFO, bidirectional positive bubble study, positive color-flow Doppler. Carlos Tenorio Rajat Cardiology Follow up Carlos Horton bassam Cardiology Follow up :Elevated today but this is abnormal for her, will continue current regiment of medications B P today: 144/72 P rior BP: 150/82 (08/10/2019) Carlos Tenorio Rajat Cardiology Follow up Carlos Horton bassam Cardiology Follow up :Continue statin therapy H er updated medication list for this problem includes: Atorvastatin 20mg* Tab Asce (Atorvastatin calcium) ..... Take one tablet by mouth every day Carlos Tenorio Rajat Cardiology Follow up :Stable. H er updated medication list for this problem includes: Amlodipine 5mg* Tab Asce (Amlodipine besylate) ..... Take one tablet by mouth every day Aspirin Adult Low Dose 81 Mg Oral Tablet Delayed Release (Aspirin) ..... One tab by mouth daily Enalapril 10 Mg* Tab Ocea (Enalapril maleate) ..... Take one tablet by mouth twice daily Carvedilol 6.25mg Tab Zydu (Carvedilol) ..... Take one tablet by mouth twice daily Carlos Tenorio Rajat Cardiology- Preop de ntal clearance:Patient planning on oral surgery. She will need SBE prophylaxis due to aortic regurgitation. She can come off of aspirin for her procedure and she would be an acceptable risk for MACE. Siva Tian MD Cardiology- Preop de ntal clearance:EF improved Echo: 1 . Normal LV systolic function with EF 65%. 2 . Stage 1 diastolic dysfunction. 3 . Mild LA chamber enlargement. 4 . Mild aortic regurgitation. 5 . Trace mitral, tricuspid and pulmonic regurgitation. 6 . Normal estimated PA systolic pressure. Siva Tian MD Cardiology- Preop de ntal clearance:August 10, 2019 C urrently off plavix. Remains on aspirin alone. No new sx. Remains ASA/Plavix. Can come off Plavix. Has been greater than one year on DAPT for ANTHONY. Will switch to Yosprala 81/40mg and have her stop regular aspirin. Siva Tian MD Cardiology- Preop de ntal clearance:On medrx for AR. Says BP has been well controlled. S UMMARY OF FINDINGS of LARRY 01/28/19 1 . Normal LV size and function. 2 . Normal RV size and function. 3. Wnxh-ss-vlqekaub aortic regurgitation. 4 . PFO, bidirectional positive bubble study, positive color-flow Doppler. Siva Tian MD Cardiology- Preop de ntal clearance:LARRY done in January 2019 demonstrated mild-moderate AR. No plan for anything beyond medical management at present since LV function is preserved and heart is not dilated. S UMMARY OF FINDINGS: 1 . Normal LV size and function. 2 . Normal RV size and function. 3 . Nnpu-kp-vbjybyzz aortic regurgitation. 4 . PFO, bidirectional positive bubble study, positive color-flow Doppler. Siva Tian MD Cardiology: H er updated medication list for this problem includes: Atorvastatin Calcium 20 Mg Oral Tablet (Atorvastatin calcium) ..... Once daily Siva Tian MD Cardiology: B P today: 140/60 P rior BP: 157/72 (08/11/2018) Her updated medication list for this problem includes: Amlodipine Besylate 5 Mg Oral Tablet (Amlodipine besylate) ..... One tab. daily Aspirin Adult Low Dose 81 Mg Oral Tablet Delayed Release (Aspirin) ..... One tab by mouth daily Hydrochlorothiazide 25 Mg Oral Tablet (Hydrochlorothiazide) ..... One tab daily Vasotec 10 Mg Oral Tablet (Enalapril maleate) ..... One tab twice. daily Carvedilol 6.25 Mg Oral Tablet (Carvedilol) ..... One tab. twice daily Siva Tian MD Cardiology Siva Tian MD Cardiology Siva Tian MD Cardiology Siva Tian MD Cardiology Siva Tian MD Cardiology Siva Tian MD Cardiology:Progressi on of AR based on echo. Plan LARRY. SBE ppx. emphasized. Need to repeat caortid U/S. Siva Tian MD Cardiology:Still on ASA. Plavix regimen completed. T he following medications were removed from the medication list: Norvasc 5 Mg Oral Tablet (Amlodipine besylate) ..... One tablet once daily Yosprala 81-40 Mg Oral Tablet Delayed Release (Aspirin-omeprazole) ..... One tablet, daily. Her updated medication list for this problem includes: Amlodipine Besylate 5 Mg Oral Tablet (Amlodipine besylate) ..... One tab. daily Aspirin Adult Low Dose 81 Mg Oral Tablet Delayed Release (Aspirin) ..... One tab by mouth daily Vasotec 10 Mg Oral Tablet (Enalapril maleate) ..... One tab twice. daily Carvedilol 6.25 Mg Oral Tablet (Carvedilol) ..... One tab. twice daily Orders: 9 9215 HIGH Complex (CPT-29638) S TR - Adenosine (CPT-28704) C omplete Echo (CPT-62537) A alba Duplex Ultrasound (AAA) (CPT-02144) Siva Tian MD Cardiology:02/18/18 A bd. U/S: 1 . 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 2 . Plaque is demonstrated throughout. This reinforces the need for additional BP management. Siva Tian MD Cardiology:Echo 02/18 Conclusions: 1 . Normal left ventricular systolic function. Normal left ventricular size. Normal left ventricular wall t hickness. There is E to A wave reversal consistent with impaired LV relaxation. Left ventricular e jection fraction is estimated at 60 %. 2 . Normal right ventricular size. Normal right ventricular systolic function. 3 . Moderate aortic valve regurgitation. 4 . Mild mitral annular calcification. There is trace physiologic mitral valve regurgitation. 5 . The tricuspid valve is normal in appearance and function. There is trace physiologic tricuspid valve r egurgitation. Unable to adequately assess the RVSP. Siva Tian MD Cardiology: O rders: E KG (CPT-02983) Siva Tian MD Cardiology:Chol 149. Bloodwork done with PCP. H er updated medication list for this problem includes: Atorvastatin Calcium 20 Mg Oral Tablet (Atorvastatin calcium) ..... Once daily Siva Tian MD Cardiology:Says BP a t home is better than BP here. Morning BP is usually higher than evening BP. Recommend amlodipine 5 mg at night to see if that improves BP. Still has Norvasc at home and will restart it. T he following medications were removed from the medication list: Norvasc 5 Mg Oral Tablet (Amlodipine besylate) ..... One tablet once daily Her updated medication list for this problem includes: Amlodipine Besylate 5 Mg Oral Tablet (Amlodipine besylate) ..... One tab. daily Aspirin Adult Low Dose 81 Mg Oral Tablet Delayed Release (Aspirin) ..... One tab by mouth daily Hydrochlorothiazide 25 Mg Oral Tablet (Hydrochlorothiazide) ..... One tab daily Vasotec 10 Mg Oral Tablet (Enalapril maleate) ..... One tab twice. daily Carvedilol 6.25 Mg Oral Tablet (Carvedilol) ..... One tab. twice daily Siva Tian MD Cardiology:More pron ounced. Had piror U/S with <50% stenosis B/L. Check carotid. Siva Tian MD Cardiology:Prior ech o 2016. Demonstrated mild AR. Will recheck. 1. Normal LV systolic function with EF 65%. 2 . Stage 1 diastolic dysfunction. 3 . Mild LA chamber enlargement. 4 . Mild aortic regurgitation. 5 . Trace mitral, tricuspid and pulmonic regurgitation. 6 . Normal estimated PA systolic pressure. Siva Tian MD Cardiology: H er updated medication list for this problem includes: Atorvastatin Calcium 20 Mg Oral Tablet (Atorvastatin calcium) ..... Once daily Continues on Atorvastatin. Siva Tian MD Cardiology:Dietary s odium restriction recommended. Will check Bp periodically. May need to adjust medrx. H er updated medication list for this problem includes: Hydrochlorothiazide 25 Mg Oral Tablet (Hydrochlorothiazide) ..... One tab daily Vasotec 10 Mg Oral Tablet (Enalapril maleate) ..... One tab twice. daily Carvedilol 6.25 Mg Oral Tablet (Carvedilol) ..... One tab. twice daily Siva Tian MD Cardiology:Small mid abdominal aortic aneurysm measuring approximately 3.0 cm. Siva Tian MD Cardiology follow up : B P today: 134/82 P rior BP: 152/82 (01/28/2017) Her updated medication list for this problem includes: Hydrochlorothiazide 25 Mg Tabs (Hydrochlorothiazide) ..... One tab daily Vasotec 10 Mg Tabs (Enalapril maleate) ..... One tab twice. daily Carvedilol 6.25 Mg Tabs (Carvedilol) ..... One tab. twice daily [facility] Aspirin 81 Mg Oral Tbec (Aspirin) ..... Once daily Siva Tian MD Cardiology follow up Siva floyd MD Cardiology follow up :02/24/2017 Echo: 1 . Normal LV systolic function with EF 65%. 2 . Stage 1 diastolic dysfunction. 3 . Mild LA chamber enlargement. 4 . Mild aortic regurgitation. 5 . Trace mitral, tricuspid and pulmonic regurgitation. 6 . Normal estimated PA systolic pressure. Siva Tian MD Cardiology follow up :No new sx. Remains ASA/Plavix. Can come off Plavix. Has been greater than one year on DAPT for ANTHONY. Will switch to Yosprala 81/40mg and have her stop regular aspirin. Her updated medication list for this problem includes: Vasotec 10 Mg Tabs (Enalapril maleate) ..... One tab twice. daily Carvedilol 6.25 Mg Tabs (Carvedilol) ..... One tab. twice daily Clopidogrel Bisulfate 75 Mg Oral Tabs (Clopidogrel bisulfate) ..... Once daily [facility] Aspirin 81 Mg Oral Tbec (Aspirin) ..... Once daily Siva Tian MD Cardiology:Will have an echo done at her next visit. No evidence of CHF. Continue lux-inhibitor and beta-elisha. Suellen Preciado NP Cardiology:Continues on Asprin a nd plavix. Suellen Preciado NP Cardiology:Continues on Atorvast atin. Suellen Preciado NP Cardiology:Blood pre ssure when checked at home this morning was 124/69. She continues on Carvedilol. Suellen Preciado NP Cardiology:1. There is hypokinesis in the : basal inferior wall, basal inferolateral wall, mid inferior and mid i nferolateral wall. Normal left ventricular size. Normal left ventricular wall thickness. There is E to A w ave reversal consistent with impaired LV relaxation. Normal E/E` 10.0. Left ventricular ejection f raction is estimated at 45 %. 2 . There is moderate enlargement of the left atrium. LA volume is 75 mL. 3 . There is aortic valve sclerosis. Moderate to severe aortic valve regurgitation. on medrx Siva Tian MD Cardiology:Small mid abdominal aortic aneurysm measuring approximately 3.0 cm. 05/19/16 Siva Tian MD Cardiology:could be related to alyssa as she is on low dose BB Siva Tian MD Cardiology Siva Tian MD Cardiology:persistet nl elevated despite medrx will need to check for alyssa as underlying cause H er updated medication list for this problem includes: Hydrochlorothiazide 25 Mg Tabs (Hydrochlorothiazide) ..... One tab daily Vasotec 10 Mg Tabs (Enalapril maleate) ..... One tab twice. daily Carvedilol 6.25 Mg Tabs (Carvedilol) ..... One tab. twice daily [facility] Aspirin 81 Mg Oral Tbec (Aspirin) ..... Once daily Siva Tian MD Cardiology: H er updated medication list for this problem includes: Vasotec 10 Mg Tabs (Enalapril maleate) ..... One tab twice. daily Carvedilol 6.25 Mg Tabs (Carvedilol) ..... One tab. twice daily Clopidogrel Bisulfate 75 Mg Oral Tabs (Clopidogrel bisulfate) ..... Once daily [facility] Aspirin 81 Mg Oral Tbec (Aspirin) ..... Once daily Siva Tian MD Cardiology: H er updated medication list for this problem includes: Atorvastatin Calcium 20 Mg Oral Tabs (Atorvastatin calcium) ..... Once daily Siva Tian MD Cardiology Siva Tian MD Cardiology:Inferior Wall [place], abnormal stress, no ischemia H er updated medication list for this problem includes: Vasotec 10 Mg Tabs (Enalapril maleate) ..... One tab twice. daily Carvedilol 6.25 Mg Tabs (Carvedilol) ..... One tab. twice daily Clopidogrel Bisulfate 75 Mg Oral Tabs (Clopidogrel bisulfate) ..... Once daily [facility] Aspirin 81 Mg Oral Tbec (Aspirin) ..... Once daily Siva Tian MD Cardiology:Check yu al doppler, add vasotec H er updated medication list for this problem includes: Vasotec 10 Mg Tabs (Enalapril maleate) ..... One tab twice. daily Carvedilol 6.25 Mg Tabs (Carvedilol) ..... One tab. twice daily [facility] Aspirin 81 Mg Oral Tbec (Aspirin) ..... Once daily Siva Tian MD Cardiology: H er updated medication list for this problem includes: Carvedilol 3.125 Mg Oral Tabs (Carvedilol) ..... Twice daily [facility] Aspirin 81 Mg Oral Tbec (Aspirin) ..... Once daily BP today: 140/82 Reji Sweeney MD Cardiology: H er updated medication list for this problem includes: Atorvastatin Calcium 20 Mg Oral Tabs (Atorvastatin calcium) ..... Once daily Reji Sweeney MD Cardiology:s/p rca d es rca h as lad 70% plan: c heck echo to look at lvef c arotids c heck stress test to assess significance of lad lesion Reji Sweeney MD Date Name Carotid Duplex Bilat eral Aorta Duplex Ultraso und Complete Echo PROTHROMBIN TIME WIT H INR CBC (INCLUDES DIFF/P LT) LIPID PANEL COMPREHENSIVE METABO LIC PANEL, W/EGFR CT Angio, Carotids CT Angio, Carotids Aorta Duplex Ultraso und Carotid Duplex Bilat eral EKG Complete Echo Aorta Duplex Ultraso und Complete Echo LARRY - GC Aorta Duplex Ultraso und (AAA) Complete Echo STR - Adenosine Complete Echo Aorta Duplex Ultraso und (AAA) Renal Artery Duplex HISTORY OF PROCEDURES Procedure Date Procedure Name Provider Procedure Notes S tatus Complex e/m visit add on Siva Tian MD completed EKG Siva Tian MD completed EKG Siva Tian MD completed EKG Luciano Lin MD complete d EKG Siva Tian MD completed EKG Siva Tian MD completed EKG Siva Tian MD completed EKG Siva Tian MD completed EKG Siva Tian MD completed Cardiolite, 2 units Siva buenrostro MD completed SPECT Images Mary Reynoso MD compl eted Stress EKG Mary Reynoso MD complet ed EKG Siva Tian MD completed EKG Siva Tian MD completed EKG Siva Tian MD completed SNOMED-CT: [id number] Current Medications Documented Siva Tian MD completed Event Monitor Siva Tian MD completed EKG Siva Tian MD completed SNOMED-CT: [id number] Current Medications Documented Siva Tian MD completed EKG Siva Tian MD completed SNOMED-CT: [id number] Current Medications Documented Siva Tian MD completed EKG Siva Tian MD completed SNOMED-CT: [id number] Current Medications Documented Siva Tian MD completed Stress EKG Tyra Burleson MD completed Cardiolite, 2 units Reji Sweeney MD c ompleted SPECT Images Tyra Bulreson MD complet ed EKG Reji Sweeney MD completed SNOMED-CT: [id number] Current Medications Documented Reji Sweeney MD completed
[2024-12-19 14:09] LABS: Hematocrit 50.3 % (37.0-47.0); Hemoglobin 16.2 g/dL (12.0-15.0); Mean Corpuscular HGB Conc 32.2 g/dl (32-36); Mean Corpuscular Hemoglobin 31.8 pg (26-34); Mean Corpuscular Volume 98.6 fl (80-100); Mean Platelet Volume 10.4 fl (7.4-10.4); Platelet Count Result 239 k/mm3 (150-375); Red Cell Distribution Width 12.5 % (11.5-14.5); White Blood Count 9.9 K/mm3 (4.5-10.0)
[2024-12-19 14:35] LABS: Alanine Aminotransferase 16 U/L (6-35); Albumin Level 4.4 g/dL (3.5-5.1); Alkaline Phosphatase 144 U/L (38-126); Anion Gap 10 mmol/L (4-12); Aspartate Amino Transferase 46 U/L (14-36); Blood Urea Nitrogen 20 mg/dL (7-17); Calcium 9.5 mg/dL (8.4-10.2); Carbon Dioxide 28 mmol/L (22-30); Chloride 101 mmol/L (98-107); Cholesterol 178 mg/dL (0-200); Estimated Glomerular Filt Rate 40; Glucose 150 mg/dL (65-110); HDL Direct 43 mg/dL; Potassium 4.7 mmol/L (3.4-5.0); Sodium 139 mmol/L (137-145); Triglycerides 140 mg/dL (<150)
[2024-12-19 14:46] LABS: LDL Cholesterol Direct 93 mg/dL
[2024-12-19 15:10] LABS: Hemoglobin A1C 5.7 % (<5.7)
== END 2024-12-19 11:10 | disposition home or self-care (01) ==
LOC: ANHGOSHLAB 11:10
PROVIDERS: PCP Family Medicine; Visit Provider Family Medicine
DX: R73.09 Other abnormal glucose (principal); I10 Essential (primary) hypertension; E78.5 Hyperlipidemia, unspecified
CPT/HCPCS: 36415; 80053; 80061; 83036; 84443; 85027

== ENCOUNTER 2025-01-16 10:20 | Outpatient (CLI) | payer MEDICARE, SELFPAY ==
[2025-01-16 11:33] LABS: Alanine Aminotransferase 19 U/L (6-35); Albumin Level 4.3 g/dL (3.5-5.1); Alkaline Phosphatase 152 U/L (38-126); Anion Gap 8 mmol/L (4-12); Aspartate Amino Transferase 25 U/L (14-36); Bilirubin,Total 1.2 mg/dL (0.2-1.3); Blood Urea Nitrogen 22 mg/dL (7-17); Calcium 9.6 mg/dL (8.4-10.2); Carbon Dioxide 29 mmol/L (22-30); Chloride 102 mmol/L (98-107); Estimated Glomerular Filt Rate 45; Glucose 121 mg/dL (65-110); Potassium 4.9 mmol/L (3.4-5.0); Sodium 139 mmol/L (137-145)
--- OUTSIDE RECORDS SUMMARY | 2025-01-16 11:47 | XMS_ITS | CONTINUITY OF CARE DOCUMENT ---
Author Name shar myles Address Unknown Organization [facility] Address [address] [place] [address] Phone [phone] Care Team Providers Care Competitive Intelligence Manager Name Role Phone Jaylan PORTER, Siva Stanford Unavailable [phone] ROXANNA ZELAYA MD Unavailable ROXANNA ZELAYA MD Unavailable PROBLEMS Condition Status Date Provider Notes Coronary [...] In-person encounter Office Visit Siva Tian MD [facility] Cardiology examination 7 - 8 In-person encounter Office Visit Siva Tian MD [facility] 5 - 0 In-person encounter Office Visit Siva Tian MD [facility] 9 - 4 In-person encounter Office Visit Siva Tian MD [facility] 3 - 7 In-person encounter Office Visit Siva Tian MD [facility] 4 - 7 In-person encounter Office Visit Siva Tian MD [facility] 1 - 1 In-person encounter Office Visit Tyra Burleson MD [facility] 0 - 8 In-person encounter Office Visit Siva Tian MD [facility] Preop cardiovasc. examination 8 - 8 In-person encounter Office Visit Siva Tian MD [facility] 1 - 1 In-person encounter Office Visit Siva Tian MD [facility] Carotid bruit right 7 - 0 In-person encounter Office Visit Siva Tian MD [facility] 6 - 7 In-person encounter Office Visit Siva Tian MD [facility] 9 - 5 In-person encounter Office Visit Siva Tian MD [facility] Ischemic cardiomyopathy - EF 45% 12/2015 9 - 1 In-person encounter Office Visit Siva Tian MD [facility] Bradycardia - sinusAAAAortic regurgitation 8 - 3 In-person encounter Office Visit Siva Tian MD [facility] Myocardial Infarction 6 - 6 In-person encounter Office Visit Reji Sweeney MD [facility] Coronary Heart DiseaseHyperlipidemiaHypertension VITAL SIGNS Date [...] jeongLogtamiko blood pressure, systolic 133 mm[Hg] Angelica Hwangtamiko blood pressure, diastolic 83 mm[Hg] St negrito [...] lexus Gonzalez blood pressure, systolic 136 mm[Hg] [facility] jono Gonzalez oxygen saturation, oximetry 96 % [...] /min Richa Anne weight E&M 193 [lb_av] Ricah Anne blood pressure, cuff size regular Sa [...] ri Aidaer oxygen saturation, oximetry 97 % Shartia Alex respiratory rate E&M 18 /min Sharita [...] calloway Escobar oxygen saturation, oximetry 98 % [facility] E&M 16 /[facility] pulse [facility] 64 /min Lana Escobar weight E&M 190 [lb_av] [facility] height E&M 68 [in_i] [facility] Body Mass Index (Ratio) 28.58 kg/m2 Andriy [facility] blood pressure, diastolic 72 mm[Hg] Scar Minhien Howard blood pressure, systolic 157 mm[Hg] Ya Sanchez Howard oxygen saturation, oximetry 92 % Jefferson Howard respiratory rate E&M 18 /min Fabienne Howard pulse rate 54 /min Jefferson Montez on weight E&M 188 [lb_av] Jefferson Montez on height E&M 68 [in_i] Jefferson Montez on Body Mass Index (Ratio) 29.37 kg/m2 Andriy [facility] blood pressure, diastolic 78 mm[Hg] Scar Minhien [...] Ya Howard pulse rate 59 /min Jefferson gordillo oxygen saturation, oximetry 95 % Jefferson Howard respiratory rate E&M 16 /min Fabienne Howard Body Mass Index (Ratio) 29.43 kg/m2 Freya Howard weight E&M 193.6 [lb_av] Jefferson dumont blood pressure, diastolic, right arm 86 m m[Hg] Barbara Gutierrezby blood pressure, systolic, right arm 130 m m[Hg] Barbara Gutierrezby blood pressure, diastolic 82 mm[Hg] Hugo isty [place] blood pressure, systolic 140 mm[Hg] Malini bernal Herberth pulse rate 79 /min Barbara Herberth oxygen saturation, oximetry 97 % Barbara Herberth respiratory rate E&M 16 /[facility] Body Mass Index (Ratio) 29.01 kg/m2 Earl banegas [place] weight E&M 190.8 [lb_av] Barbara [place] height E&M 68 [in_i] [facility] ALLERGIES No Known Drug Allergies HISTORY OF MEDICATION USE Medication Status Instructions Dates Provider Indications Com ments carvedilol 6.25 mg tablet active TAKE 1 TABLET BY MOUTH TWICE [facility]ILY [facility] tablet active TAKE 1 TABLET BY MOUTH EVERY DAY 12/27 [facility] amlodipine 10 mg tablet active TAKE 1 TABLET BY MOUTH EVERY DAY 11/30 [facility] atorvastatin 20 mg tablet completed Take 1 tablet by mouth once a day 11/19 - 12/27 [facility] amlodipine 10 mg tablet completed Take 1 tablet by mouth once a day 11/19 - 11/30 [facility] carvedilol 6.25 mg tablet completed Take 1 tablet by mouth twice a day 11/19 - 12/27 [facility] hydrochlorothiazide 25 mg tablet completed TAKE ONE TABLET BY MOUTH EVERY DAY 10/26 - 02/21 Monserrat Montalvo RN amlodipine 10 mg tablet completed TAKE ONE TABLET BY MOUTH EVERY DAY 10/26 - 11/19 Sharita Johnson enalapril maleate 10 mg tablet completed TAKE ONE TABLET BY MOUTH TWICE DAILY 11/26 - 11/26 Siva Tina MD atorvastatin 20 mg tablet completed TAKE [...] capsule by mouth once a day Jefferson Hoawrd aspirin 81 mg tablet,delayed release (DR/EC) active [...] once a day 10/30 - 11/26 Aislinn White carvedilol 6.25 mg tablet completed Take 1 [...] Date Observation Value Provider Exercise counseling yes Moriah Andres soler smoking status Never smoker Moriah [...] required Siva Tian MD Exercise counseling yes Manju Willis smoking status Never smoker Aislinn lopez number of grandchildren Tyra Earl smoking status Never smoker Carlos Tenorio Rajat alcohol use no Carlos Tenorio Rajat social history E&M Patient [...] Payer name Policy type / Coverage type [place] [employer] ID [facility] Other [facility] Other [facility] Other [employer] MEDICARE [employer]AGE [address] (HMO POS) Medicare [id number] ADVANCE DIRECTIVES Name Date DISCUSSED - NO DECISION MADE TREATMENT PLAN Date Name Performer [id number],Coby, I MPRESSION: 1 . Acute inferior wall [...] chris you for participation Siva Tian MD [id number],Coby N eeds echo done this year February [...] Siva Tian MD, FACC Siva Tian MD [id number],C, Heart rate today is about 76 Siva Tian MD [id number],C, C ONCLUSIONS: 1 . There is hypokinesis [...] E lectronically Signed By: Perlita Tian MD, [facility] 2 022-08-19 15:52:28 CDT C C: Siva Tian MD, [facility] Siva Tian MD [id number],C, O ctober 2018 C urrently off plavix. [...] N o new CP. Siva Tian MD [id number],C, C ONCLUSIONS: 1 . 50 - 69% [...] distal common carotid arteries. Siva Tian MD [id number],C, C ONCLUSIONS: 1 . Abdominal aorta aneurysm [...] of 2016 renal ultrasound. Siva Tian MD [id number],C,C ONCLUSIONS: 1 . There is hypokinesis in [...] Siva Tian MD, FACC Siva Tian MD [id number],C, N eeds echo done this year February [...] E lectronically Signed By: Perlita Tian MD, [facility] 2 15:52:28 CDT C C: Siva Tian MD, [facility] Siva Tian MD [id number],C, O ctober 2018 C urrently off plavix. Remains on aspirin alone. No new sx. Remains ASA/Plavix. Can come off Plavix. Has been greater than one year on DAPT for ANTHONY. Will switch to Yosprala 81/40mg and have her stop regular aspirin. May 30, 2022 P rior stent in RCA November 26, 2022 N o new CP no new angina Siva Tian MD [id number],C, B P today: 136/80 P rior BP: [...] mouth once a day Siva Tian MD [id number],C,C ONCLUSIONS: 1 . Abdominal aorta aneurysm of [...] of 2016 renal ultrasound. Siva Tian MD [id number],S,C ONCLUSIONS: 1 . 50 - 69% stenosis of the ICA bilaterally. 2 . Vertebral flow is antegrade bilaterally. 3 . ICA/CCA ratios have worsened compared to prior studies from 01/02/16. Needs CTA progression of dz noted Siva Tian MD [id number],C, H er updated medication list for this problem includes: Atorvastatin 20 Mg Tablet (Atorvastatin) ..... Take one tablet by mouth every day Siva Tian MD [id number],C, O ctober 2018 C urrently off plavix. Remains on aspirin alone. No new sx. Remains ASA/Plavix. Can come off Plavix. Has been greater than one year on DAPT for ANTHONY. Will switch to Yosprala 81/40mg and have her stop regular aspirin. May 30, 2022 P rior stent in RCA Siva Tian MD [id number],C, B P today: 124/77 P rior BP: [...] mouth once a day Siva Tian MD [id number],C, C onclusions: 1 . Mild plaque with less than 50% stenosis of the internal carotid arteries bilaterally. 2 . Vertebral flow is antegrade bilaterally May 30, 2022 C heck CTA since there is progression of ICC/ACC on US Siva Tian MD [id number],C, Conclusions: 1 . Technically difficult study. Unable to visualize the majority of the proximal and mid abdominal aorta s egments. 2 . 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 July 15, 2021 W ill need to measure and compare with study of 2018May 30, 2022 N o significant worsening of AAA scan Siva Tian MD [id number],C,C onclusions: 1 . Mild plaque with less than 50% stenosis of the internal carotid arteries bilaterally. 2 . Vertebral flow is antegrade bilaterally Siva Tian MD [id number],C,R echeck echo S BE prophalaxsis reviewed LARRY done in January 2019 demonstrated mild-moderate AR. No plan for anything beyond medical management at present since LV function is preserved and heart is not dilated. S UMMARY OF FINDINGS: 1 . Normal LV size and function. 2 . Normal RV size and function. 3 . Pkej-tl-dqlpndeo aortic regurgitation. 4 . PFO, bidirectional positive bubble study, positive color-flow Doppler. Siva Tian MD [id number],C, I MPRESSION: 1 . Acute inferior wall [...] chris you for participation Siva Tian MD [id number],C,N eeds echo done this year February 21, 2022 E F improved Echo: 1 . Normal LV systolic function with EF 65%. 2 . Stage 1 diastolic dysfunction. 3 . Mild LA chamber enlargement. 4 . Mild aortic regurgitation. 5 . Trace mitral, tricuspid and pulmonic regurgitation. 6 . Normal estimated PA systolic pressure. Siva Tian MD [id number],C,I MPRESSION: 1 . Acute inferior wall myocardial [...] chris you for participation Siva Tian MD [id number],C, T he following medications were removed from [...] rior BP: 144/72 (08/01/2020) Siva Tian MD [id number],C, Conclusions: 1 . Technically difficult study. Unable to visualize the majority of the proximal and mid abdominal aorta s egments. 2 . 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 July 15, 2021 W ill need to measure and compare with study of 2019 Siva Tian MD [id number],C,S BE prophalaxsis reviewed LARRY done in January 2019 demonstrated mild-moderate AR. No plan for anything beyond medical management at present since LV function is preserved and heart is not dilated. S UMMARY OF FINDINGS: 1 . Normal LV size and function. 2 . Normal RV size and function. 3 . Pgfr-xd-hspsdvnj aortic regurgitation. 4 . PFO, bidirectional positive bubble study, positive color-flow Doppler. Siva Tian MD [id number],C, P atient planning on oral surgery. She [...] E lectronically Signed By: Perlita Tian MD, [facility] 2 022-08-19 15:52:28 CDT C C: Siva Tian MD, [facility] LARRY 2018 SUMMARY OF FINDINGS: 1 . Normal LV size and function. 2 . Normal RV size and function. 3 . Ccjy-ua-wpnuhfit aortic regurgitation. 4 . PFO, bidirectional positive [...] Normal RV size and function. 3 . Vzix-lc-gfmpdfva aortic regurgitation. 4 . PFO, bidirectional positive [...] E lectronically Signed By: Perlita Tian MD, [facility] 15:52:28 CDT C C: Siva Tian MD, [facility] LARRY 2018 SUMMARY OF FINDINGS: 1 . Normal LV size and function. 2 . Normal RV size and function. 3 . Lmtk-ck-maiulsxe aortic regurgitation. 4 . PFO, bidirectional positive [...] E lectronically Signed By: Perlita Tian MD, [facility] 15:52:28 CDT C C: Siva Tian MD, [facility] Siva Tian MD Cardiology: C ONCLUSIONS: 1 [...] E lectronically Signed By: Perlita Tian MD, [facility] 15:52:28 CDT C C: Siva Tian MD, [facility] Siva Tian MD Cardiology: Heart rate today [...] E lectronically Signed By: Perlita Tian MD, [facility] 15:52:28 CDT C C: Siva Tian MD, [facility] Siva Tain MD Cardiology: O ctober 2018 C urrently [...] 15:52:28 CDT C C: [facility] S[facility] MD Cardiology: N eeds echo [...] E lectronically Signed By: Perlita Tian MD, [facility] 2 15:52:28 CDT C C: Siva Tian MD, [facility] Siva Tian MD Cardiology: O ctober 2018 [...] Normal RV size and function. 3 . Wvfz-vx-pxrtvkbq aortic regurgitation. 4 . PFO, bidirectional positive [...] 130/80 P rior BP: 144/72 (08/01/2020) Siva iTan MD Cardiology follow up : Conclusions: 1 [...] Normal RV size and function. 3 . Qnqm-ss-aqiptoyd aortic regurgitation. 4 . PFO, bidirectional positive [...] Normal RV size and function. 3 . Gnam-nd-zfukadtu aortic regurgitation. 4 . PFO, bidirectional positive [...] . Normal RV size and function. 3. Tlgn-nl-hikvmvug aortic regurgitation. 4 . PFO, bidirectional positive [...] Normal RV size and function. 3 . Jwek-ai-qsirpwqt aortic regurgitation. 4 . PFO, bidirectional positive [...] twice daily Orders: 9 9215 HIGH Complex (CPT-95982) S TR - Adenosine (CPT-09016) C omplete Echo (CPT-16151) A alba Duplex Ultrasound (AAA) (CPT-65808) Siva Tian MD Cardiology:02/18/18 A bd. U/S: [...] Tian MD Cardiology: O rders: E KG (CPT-54756) Siva Tian MD Cardiology:Chol 149. Bloodwork done [...] MD Cardiology Siva Tian MD Cardiology:Inferior Wall SC, abnormal stress, no ischemia H er updated [...] completed EKG Siva Tian MD completed EKG Svia Tian MD completed SNOMED-CT: [id number] Current Medications Documented Siva Tian MD completed Event Monitor Siva Tian MD completed EKG Siva Tian MD completed SNOMED-CT: [id number] Current Medications Documented Siva Tian MD completed EKG Siva Tian MD completed SNOMED-CT: [id number] 993012 Current Medications Documented Siva Tian MD completed EKG Siva Tian MD completed SNOMED-CT: [id number] 132110 Current Medications Documented Siva Tian MD completed Stress EKG Tyra Burleson MD completed Cardiolite, 2 units Reji Sweeney MD c ompleted SPECT Images Tyra Burleson MD complet ed EKG Reji Sweeney MD completed SNOMED-CT: [id number] 899229 Current Medications Documented Reji Sweeney MD completed
[2025-01-16 11:56] LABS: Hemoglobin 16.1 g/dL (12.0-15.0); Mean Corpuscular HGB Conc 32.2 g/dl (32-36); Mean Corpuscular Hemoglobin 31.7 pg (26-34); Mean Corpuscular Volume 98.4 fl (80-100); Mean Platelet Volume 10.8 fl (7.4-10.4); Platelet Count Result 207 k/mm3 (150-375); Red Blood Count 5.08 M/mm3 (4.2-5.4); Red Cell Distribution Width 12.6 % (11.5-14.5); White Blood Count 8.7 K/mm3 (4.5-10.0)
== END 2025-01-16 10:21 | disposition home or self-care (01) ==
PROVIDERS: PCP Family Medicine; Visit Provider Family Medicine
DX: D58.2 Other hemoglobinopathies (principal); R74.8 Abnormal levels of other serum enzymes
CPT/HCPCS: 36415; 80053; 85027

== ENCOUNTER 2025-01-23 09:52 | Outpatient (CLI) | payer MEDICARE, SELFPAY ==
--- NOTE | ~2025-01-23 | US_ITS ---
Limited Abdominal Sonogram: Real-time sonographic imaging of the right upper quadrant was performed. Clinical History: Abnormal serum enzyme levels Findings: The liver appears normal with no evidence of mass lesion or bile duct dilatation. Main por sai vein demonstrates normal direction of flow. The gallbladder is absent, compatible prior cholecyst ectomy. The common bile duct measures 4 mm. The visualized pancreas, aorta, and IVC are unremarkable . Impression: Status post cholecystectomy, otherwise unremarkable exam. Reviewed, dictated and finalized at location M. Impression: Status post cholecystectomy, otherwise unremarkable exam.
== END 2025-01-23 09:53 | disposition home or self-care (01) ==
LOC: GOSHIMG 09:53
PROVIDERS: PCP Family Medicine; Visit Provider Family Medicine
DX: R74.8 Abnormal levels of other serum enzymes (principal); R74.01 Elevation of levels of liver transaminase levels; Z90.49 Acquired absence of other specified parts of digestive tract
CPT/HCPCS: 76705

== ENCOUNTER 2025-05-22 11:04 | Outpatient (CLI) | payer MEDICARE, SELFPAY ==
--- OUTSIDE RECORDS SUMMARY | 2025-05-22 11:08 | XMS_ITS | Clinical Summary ---
Author Organization [facility] Address [address] [place] [id number] Care Team Providers Care Portfolio Director Name Role Phone Unavailable Primary Care Provider [...] Td Vaccines ( 1 - Tdap) 1964 Pneumococcal Vaccine: 50+ Ye ars (1 of 1 - PCV) 1995 Zoster Vaccines (1 of 2) 1995 Dexa Scan (General) 2010 RSV Immunization or 60+ Years (1 - 1-dose 75+ series) 2020 COVID-19 Vaccine ( - 2023-2 5 season) 2024 Meningococcal B Vaccine Aged Out No l onger eligible based on patient's age to complete this topic Meningococcal Vaccine Aged Out No teddy cheo eligible based on patient's age to complete this topic RSV Immunizations Under 20 Months Aged Out No longer eligible based on patient's age to complete this topic
[2025-05-22 13:00] LABS: Hematocrit 48.7 % (37.0-47.0); Hemoglobin 15.9 g/dL (12.0-15.0); Mean Corpuscular HGB Conc 32.6 g/dl (32-36); Mean Corpuscular Hemoglobin 31.7 pg (26-34); Mean Corpuscular Volume 97.0 fl (80-100); Platelet Count Result 217 k/mm3 (150-375); Red Blood Count 5.02 M/mm3 (4.2-5.4); White Blood Count 9.8 K/mm3 (4.5-10.0)
[2025-05-22 13:13] LABS: Alanine Aminotransferase 18 U/L (6-35); Albumin Level 4.2 g/dL (3.5-5.1); Alkaline Phosphatase 136 U/L (38-126); Anion Gap 11 mmol/L (4-12); Aspartate Amino Transferase 33 U/L (14-36); Bilirubin,Total 0.9 mg/dL (0.2-1.3); Blood Urea Nitrogen 17 mg/dL (7-17); Calcium 9.5 mg/dL (8.4-10.2); Carbon Dioxide 24 mmol/L (22-30); Chloride 102 mmol/L (98-107); Cholesterol 175 mg/dL (0-200); Estimated Glomerular Filt Rate 46; Glucose 140 mg/dL (65-110); HDL Direct 35 mg/dL; Potassium 4.3 mmol/L (3.4-5.0); Sodium 137 mmol/L (137-145); Total Protein 8.9 g/dL (6.3-8.2); Triglycerides 136 mg/dL (<150)
[2025-05-22 13:49] LABS: Thyroid Stimulating Hormone 2.760 uIU/mL (0.465-4.680)
[2025-05-22 15:08] LABS: Hemoglobin A1C 5.8 % (<5.7)
== END 2025-05-22 11:05 | disposition home or self-care (01) ==
LOC: ANHGOSHLAB 11:05
PROVIDERS: PCP Family Medicine; Visit Provider Family Medicine
DX: E78.5 Hyperlipidemia, unspecified (principal); Z79.899 Other long term (current) drug therapy; I10 Essential (primary) hypertension; R73.09 Other abnormal glucose
CPT/HCPCS: 36415; 80053; 80061; 83036; 84443; 85027